=== PATIENT | male | born 1945 | race Caucasian/White ===

== ENCOUNTER 2022-04-03 09:27 | Outpatient (CLI) | payer MEDICARE, OTHER, SELFPAY ==
--- OUTSIDE RECORDS SUMMARY | 2022-03-20 09:51 | XMS_ITS | Continuity of Care Document ---
:1945 Author Care Team Providers Name Role Phone MD Shaan Hills Attending Physician MD Shaan Hills Primary Care Physician Allergies, Adverse Reactions, Alerts Allergen Type Severity Reaction Last Updated Verified Status No Known Drug Allergy Unknown May Yes Active Allergy 2020 Social History Smoking Status Status Start Date End Date Date of Observat ion Never smoked tobacco May 252020 (finding) 4:04pm Observation Status Observation Response Date of Response Former smoker June 06, 2021 9:07am Has 2 children June 06, 2021 9:07am Additional Data Assigned Sex Male Problems Active Problems Medical Problem Onset Date Status Rectal 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 Hx of type 2 diabetes mellitus Active Hx of mixed hyperlipidemia Active History of Durham-Schlatter disease Acti ve History of hypertension Active 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 Rosacea Active Medications Medication Status Dose Units Route Directions Qty Days Start End Ins tructions Date Date Acetaminophen Active 325-6 MG PO Every 4 100 NO MORE THAN (Tylenol) 325 50 Hours as 400 0 MG/DAY Mg TAB needed Lidocaine-Judy Active 1 BALDO TOP As Needed 22 April locaine 2020 9:25am Ondansetron Active 8 MG PO Every 8 30 Hcl Hours as needed Polyethylene Active 17 GM PO Daily 238 Glycol 3350 (Miralax) 17 Gm POW Prochlorperaz Active 10 MG PO Every 4-6 30 P RN ine Maleate Hours as Nause a/vomiti needed ng Capecitabine Discontin 1000 MG PO Twice A Day Feb scarlett PO BID DAYS 1-14, Q21D X8 CYCLES. Dispense appropriate combo ued ry of pills to ob tain ordered dose. 21 day supply. 2021 1:45pm Capecitabine Discontin 500 MG PO Twice A Day 100 Septemb N ovemb take 1300 mg every 12 hours on days of radiation. (2 ued er er tablets of 500 plus 2 tablets of 150) 2020 5:52pm 11:12a m Capecitabine Discontin 1300 MG PO Twice A Day 100 25 Septemb N ovemb take 1300 mg every 12 hours on days of radiation. (2 ued er er tablets of 500 plus 2 tablets of 150) 2020 5:52pm 11:55a m Immunizations Immunization Event Date Not Given Dose Mail Sorter And Delivery Lot Vac cine Reason Number Number Informatio n Statement (VIS) Deta il COVID-19 Pfizer November 25, 2020 COVID-19 Pfizer December 16, 2020 COVID-19 Pfizer May 132020 Herpes Zoster October 082013 Influenza May 252019 Prevnar Adult July 142012 Pneumovax Adult July 292014 Tetanus/Diptheri September 24 a 2003 Tdap July 14 (adolescent/adul 2012 t) Relevant Diagnostic Tests and/or Laboratory Data Laboratory Results Test Date/Time Result Interpretation Reference Result Comment Performing Range Site White Blood February 5.43 5.00-10.00 [facility] Count 2021 [facility] 2:38pm [place] [address] Red Blood February 3.62 4.32-5.72 [facility] Count 2021 [facility] 2:38pm [place] [address] Hemoglobin February 11.9 13.5-17.5 [facility] 2021 [facility] 2:38pm [place] [address] Hematocrit February 36.4 38.8-50.0 [facility] [address] [facility] [address] 2:38pm [place] [address] Mean October 81-95 [facility] Corpuscular [address] Volume 2:38pm [place] [address] Mean October 27-34 [facility] Corpuscular [address] Hemoglobin 2:38pm [facility] [place] [address] Mean October 32-36 [facility] Corpuscular [address] Hemoglobin 2:38pm [facility] [address] Concent Platelet Count October 164 150-450 [facility] 2021 [facility] 2:38pm [place] [address] RDW October 12.7 11.5-15.3 [facility] Coefficient of 2021 [facility] Variation 2:38pm [place] [address] Neutrophils February 71.0 50.0-70.0 [facility] (%) (Auto) 2021 [facility] 2:38pm [facility] [address] Lymphocytes February 11.2 25.0-45.0 [facility] (%) (Auto) 2021 [facility] 2:38pm [place] [address] Monocytes (%) October 9.4 0.00-11.0 [facility] Lab (Auto) 2021 [facility] 2:38pm [place] [address] Eosinophils February 7.6 0.0-7.0 [facility] (%) (Auto) 2021 [facility] 2:38pm [facility] [address] Basophils (%) October 0.6 0.0-3.0 [facility] (Auto) 2021 [facility] 2:38pm [facility] [address] Immature February 0.2 [facility] Granulocyte % 2021 [facility] (Auto) 2:38pm [place] [address] RDW June 15.5 11.5-15.3 [facility] Coefficient of 2020 [facility] Variation 11:45am [facility] [address] Neutrophils # February 3.86 1.70-7.00 [facility] (Auto) 2021 [facility] 2:38pm [place] [address] Lymphocytes # February 0.61 0.90-2.90 [facility] (Auto) 2021 [facility] 2:38pm [place] [address] Monocytes # February 0.51 0.30-0.90 [facility] Lab (Auto) 2021 [facility] 2:38pm [place] [address] Eosinophils # February 0.41 0.00-0.50 [facility] (Auto) 2021 [facility] 2:38pm [facility] [address] Basophils # February 0.03 0.00-0.20 [facility] (Auto) 2021 [facility] 2:38pm [facility] [address] Immature February 0.01 [facility] Granulocyte # 2021 [facility] (Auto) 2:38pm [facility] [address] Glycated February 5.1 0-5.6 [facility] Hemoglobin 2021 [facility] 2:38pm [facility] [address] Folate October 12.3 >=5.9 INTERPRETIVE [facility] 2021 INFORMATION: [address] 2:38pm [facility] [address] SerumReference Interval: Less than or equal to 3.9 ng/mL = Deficient 4.0 ng/mL - 5.8 ng/mL = Indeterminate Greater than or equal to 5.9 ng/mL = NormalPerformed By: DUSTY Matos[address] [place] [id number] Director: Navya Larios MD Random Glucose October 86 60-115 [facility] 2021 [facility] 2:38pm [facility] [address] Blood Urea October 16 7-30 [facility] Nitrogen 2021 [facility] 2:38pm [facility] [address] Creatinine February 0.7 0.5-1.5 [facility] 2021 [facility] 2:38pm [facility] [address] Estimated February 87.238 [facility] Creatinine 2021 [facility] Clearance 2:38pm [facility] [address] Sodium Level October 138 135-149 [facility] 2021 [facility] 2:38pm [facility] [address] Potassium February 4.1 3.6-5.1 [facility] Level 2021 [facility] 2:38pm [facility] [address] Chloride Level October 105 96-114 [facility] 2021 [facility] 2:38pm [facility] [address] Carbon Dioxide October 28 20-32 [facility] Level 2021 [facility] 2:38pm [facility] [address] Calcium Level October 8.6 8.4-10.6 [facility] 2021 [facility] 2:38pm [place] [address] Total Protein October 6.6 6.0-8.3 The use of [facility] 2021 Eltrombopag, a 1999 [facility] 2:38pm [place] [address] stimulant used to treat thrombocytopenia and aplastic anemia, interferes with this measurement of total protein. A 5% bias has been observed. Albumin October 4.0 3.3-5.0 [facility] 2021 [facility] 2:38pm [place] [address] Total February 0.5 0.1-1.5 [facility] Bilirubin 2021 [facility] 2:38pm [place] [address] Aspartate October 45 12-35 [facility] Amino Transf [address] [facility] [place] (AST/SGOT) 2:38pm [place] [address] Alanine October 24 4-50 [facility] Aminotransfera 2021 [facility] se (ALT/SGPT) 2:38pm [place] [address] Alkaline October 68 40-150 [facility] Phosphatase [address] 2:38pm [place] [address] Carcinoembryon February 09, 1.6 INTERPRETIVE [facility] ic Antigen 2021 INFORMATION: [address] 9:59am Carcinoembryonic [facility] [address] AntigenThe Franco CEA electrochemilumi nescent immunoassay was used.Results obtained with different test methods or kits cannot beused interchangeably. Measurement of CEA has been shown to beclinically relevant in the management of patients withcolorectal, breast, lung, prostatic, pancreatic, and ovariancarcinoma s. Smokers may have slightly elevated levels of CEA.The CEA assay value, regardless of level, should not beinterpreted as evidence for the presence or absence of malignantdisease and is not recommended for use as a screening procedureto detect the presence of cancer in the general population.Perfo rmed By: [facility] [id number] [place], [place] [address]Ieniadvmok Director: Navya Larios MD Total Protein October 6.0 6.3-8.2 [facility] L ABORATORIES (ANIVAL) 2021 [address] [facility] [address] 2:38pm [facility] [address] Albumin (ANIVAL) October 3.47 3.75-5.01 [facility] [address] 2:38pm [facility] [address] Thydi-3-Lxilep October 0.34 0.19-0.46 [facility] ins [address] 2:38pm [facility] [address] Xgecl-8-Mxnwtz October 0.79 0.48-1.05 [facility] ins [address] 2:38pm [facility] [address] Beta Globulins October 0.68 0.48-1.10 [facility] [address] 2:38pm [facility] [address] Gamma February 0.72 0.62-1.51 [facility] Globulins [address] 2:38pm [facility] [address] Immunofixation October ANIVAL [facility] Interpretation [address] 2:38pm [facility] [address] Immunoglobulin October [phone] REFERENCE [facility] G 2021 INTERVAL: [address] (Nephelometry) 2:38pm Immunoglobulin [facility] [address] GAccess complete set of age- and/or gender-specific referenceinterva ls for this test in the [facility] Test Directory([employer]). Immunoglobulin October 220 68-408 [facility] A [address] INTERVAL: [address] (Nephelometry) 2:38pm Immunoglobulin [place] [address] AAccess complete set of age- and/or gender-specific referenceinterva ls for this test in the [facility] Test Directory([employer]). Immunoglobulin October 43 35-263 [facility] M [address] INTERVAL: [address] (Nephelometry) 2:38pm Immunoglobulin [facility] [address] MAccess complete set of age- and/or gender-specific referenceinterva ls for this test in the [facility]([employer]). Free [place] November 1284 3.30-19.40 INTERPRETIVE [facility] Light Chains, 2021 INFORMATION: [address] Quant 2:38pm [place] Qnt Free [facility] [address] Light ChainsUndetected antigen excess is a rare event but cannot beexcluded. Free light chain results should always be interpretedin conjunction with other clinical and laboratory findings. Free Lambda October 19.85 5.71-26.30 INTERPRETIVE [facility] [employer] Light Chains, 2021 INFORMATION: [address] Quant 2:38pm Lambda Qnt Free [facility] [address] Light ChainsUndetected antigen excess is a rare event but cannot beexcluded. Free light chain results should always be interpretedin conjunction with other clinical and laboratory findings. Free [place] and October 1.00 0.26-1.65 [facility] [employer] Lambda Light [address] Chains 2:38pm [facility] [address] ANIVAL & Serum October See Normal SPEP [facility] L ABORATORIES PEP 2021 Note pattern. ANIVAL [address] Interpretation 2:38pm gel shows a [facility] [address] normal pattern; nomonoclonal proteins seen. Monoclonal October See Access [facility] Protein and 2021 Note Enhanced Report [address] FLC (EER) 2:38pm using the link [facility] [address] below:-Direct access: [email or web address] rformed By: [email or web address] [place], [place] [address]Laboratory Director: Nvaya Larios MD Vitamin B12 October 243-044 [facility] Level 2021 [facility] 2:38pm [facility] [address] Insurance Providers Guarantor Kael Vanegas Address [address] [facility] [address] Contact Info. Home Phone: Payer Policy Id Coverage Id Subscriber's Subscriber Effective Expi ration Name Id Date Date Medicare [id number] Kael Vanegas [id number] [facility] [id number] Kael Vanegas [id number] [facility] C Encounters Encounter Location(s) Arrival/Admit Date Discharge/Depart Date Provider(s) Registered [place] March 09, 2022 Lui Talbert [facility] 7:22am Plan of Treatment Future Tests Future scheduled test information is unavailable Pending Tests Pending diagnostic test information is unavailable Future Visits Future appointment information is unavailable Referrals to Other Providers Referral information is unavailable Future Procedures Future procedure information is unavailable Future Medications Future medication information is unavailable Patient Instructions Dexamethasone (By injection) Palonosetron (By injection)
--- NOTE | 2022-04-03 10:00 | CRLHL7_ITS ---
For Patients: As a result of the Century Cures Act, medical imaging exams and procedure reports are released immediately into your electronic medical record. You may view this report before your referring provider. If you have questions, please contact your health care provider. Indication: RECTAL CANCER F/U Technique: Postcontrast CT chest, abdomen and pelvis. 98 cc Isovue 370 intravenous contrast. Please note that all CT scans at this facility use dose modulation, iterative reconstruction, and/or weight-based dosing when appropriate to reduce radiation dose to as low as reasonably achievable. Comparison: [facility] 10/03/2021 Findings: In the chest, there are no suspicious pulmonary nodules. No infiltrate, edema, effusion or pneumothorax. Mild chronic scarring at the lateral aspect of the left lower lobe. No mediastinal, hilar or axillary adenopathy. Stable appearance of the thyroid. Right Port-A-Cath. No fracture. In the abdomen/pelvis, stable appearance of the liver with innumerable cysts. No suspicious intrahepatic lesions. Spleen normal. Normal adrenal glands. Normal pancreas. Normal gallbladder. Stable simple cyst within the lateral aspect of the right kidney. Less than 5 millimeter cyst upper pole left kidney. No hydronephrosis. Vascular calcifications. No adenopathy. No bowel obstruction. Postop changes to the distal colon. Posttherapy changes to perirectal fat. Interval development of a small low-density collection adjacent to the right and this, series 2, image 256, measuring 2.4 cm prostate is mildly prominent. No bladder stone. Chronic changes to the iliac wings. Stable benign density within the right side of the sacrum. Impression: Postsurgical and post radiation therapy changes to the rectum/perirectal fat with a small collection of fluid in the right perirenal space. No enlarged lymph nodes. Stable appearance of the liver with innumerable hepatic cysts/hamartomas. No suspicious pulmonary nodule. Please note that all CT scans at this facility use dose modulation, iterative reconstruction, and/or weight-based dosing when appropriate to reduce radiation dose to as low as reasonably achievable. Dictated by Augustine Cote MD @ 04/03/2022 1:31:15 PM (Electronically Signed)
== END 2022-04-03 09:28 | disposition home or self-care (01) ==
PROVIDERS: PCP Family Medicine; Visit Provider Internal Medicine Hematology & Oncology
DX: C20 Malignant neoplasm of rectum (principal); K76.89 Other specified diseases of liver; Q44.6 Cystic disease of liver
CPT/HCPCS: 36415; 36591; 71260; 74177; 82565; J1642; Q9967

== ENCOUNTER 2022-04-10 07:52 | Outpatient (RCR) | payer MEDICARE, OTHER, SELFPAY ==
[2022-04-03 10:40] LABS: Estimated Glomerular Filt Rate 90.58
[2022-04-03 10:41] LABS: Creatinine* 0.8 mg/dL (0.5-1.5)
[2022-04-03] MEDS: SODIUM CHLORIDE 0.9 % (FLUSH) 10 ML SYRINGE IVF (15:25)
[2022-04-03] MEDS: HEPARIN 500 UNIT/5 ML SYRINGE IVF (15:25)
== END 2022-04-23 23:59 | disposition home or self-care (01) ==
LOC: CCIC 07:52
PROVIDERS: PCP Family Medicine; Visit Provider Internal Medicine Medical Oncology
DX: C20 Malignant neoplasm of rectum (principal)
CPT/HCPCS: 36415; 36591; 82378; 82565; 86300; 99212; 99215; J1642

== ENCOUNTER 2022-07-03 10:46 | Outpatient (CLI) | payer MEDICARE, OTHER, SELFPAY ==
[2022-07-03 21:58] LABS: Albumin* 4.1 g/dL (3.3-5.0)
[2022-07-03 21:59] LABS: Chloride* 105 mmol/L (96-114); Potassium* 4.1 mmol/L (3.6-5.1); Sodium* 137 mmol/L (135-149)
[2022-07-03 22:00] LABS: Total Protein Urine 9 mg/dL
[2022-07-03 22:01] LABS: Bilirubin Total* 0.9 mg/dL (0.1-1.5); Carbon Dioxide* 28 mmol/L (20-32); Cholesterol* 178 mg/dL (90-199); Creatinine* 0.9 mg/dL (0.5-1.5); Estimated Glomerular Filt Rate 87 ml/min
[2022-07-03 22:02] LABS: Alanine Aminotransferase* 17 U/L (4-50); Alkaline Phosphatase* 63 U/L (40-150); Aspartate Amino Transferase* 39 U/L (12-35); Blood Urea Nitrogen* 19 mg/dL (7-30); Calcium* 9.2 mg/dL (8.4-10.6); Glucose* 100 mg/dL (60-115); Total Protein* 6.6 g/dL (6.0-8.3); Triglycerides* 62 mg/dL (40-149)
[2022-07-03 22:03] LABS: HDL Cholesterol* 56 mg/dL (>=40); LDL Cholesterol Calculated 110 mg/dL (<100)
[2022-07-03 22:07] LABS: Creatinine Urine 38.7 mg/dL; Microalbumin Creatinine Ratio 20 mg/g (0-30); Microalbumin Urine < 1 mg/dL
[2022-07-03 22:44] LABS: Hepatitis C Virus Antibody* Negative (Negative)
[2022-07-03 22:45] LABS: Vitamin B12* 185 pg/mL (243-894)
== END 2022-07-03 10:47 | disposition home or self-care (01) ==
PROVIDERS: PCP Family Medicine; Visit Provider Family Medicine
DX: Z00.00 Encounter for general adult medical examination without abnormal findings (principal); E11.9 Type 2 diabetes mellitus without complications; Z13.6 Encounter for screening for cardiovascular disorders; I10 Essential (primary) hypertension; E66.9 Obesity, unspecified; Z11.59 Encounter for screening for other viral diseases; Z86.39 Personal history of other endocrine, nutritional and metabolic disease; E78.5 Hyperlipidemia, unspecified
CPT/HCPCS: 80053; 80061; 82043; 82378; 82570; 82607; 84156; 86803

== ENCOUNTER 2022-11-06 09:45 | Outpatient (RCR) | payer MEDICARE, OTHER, SELFPAY ==
[2022-05-12] MEDS: HEPARIN 500 UNIT/5 ML SYRINGE IVF (10:38)
[2022-05-12] MEDS: SODIUM CHLORIDE 0.9 % (FLUSH) 10 ML SYRINGE IVF (10:38)
--- NOTE | 2022-05-12 11:47 | ONC.NURNOTE ---
Patient in for port flush and let nursing know that plan is for colonoscopy with Dr. Leach on June 28.
[2022-06-24 15:28] LABS: Carcinoembryonic Antigen 1.8 ng/mL
[2022-08-04 10:37] LABS: Basophils Percent Auto 0.8 % (0.0-3.0); Eosinophils Percent Auto 3.3 % (0.0-7.0); Hematocrit 41.4 % (37.0-53.0); Hemoglobin* 13.8 gm/dL (13.5-17.5); Lymphocytes Percent Auto 15.3 % (20-44); Mean Corpuscular HGB Conc 33 gm/dL (32-36); Mean Corpuscular Hemoglobin 32 pg (26-34); Mean Corpuscular Volume 95 fL (80-100); Neutrophils Percent Auto 72.6 % (42.0-72.0); Platelet Count* 169 K/uL (140-440); RDW Coefficient of Variation % 13.3 % (11.5-15.5); Red Blood Count 4.38 m/uL (4.30-5.90)
[2022-08-04 10:51] LABS: Slide Review Reflex No
[2022-08-04 11:12] LABS: Albumin* 4.1 g/dL (3.3-5.0); Chloride* 103 mmol/L (96-114); Sodium* 138 mmol/L (135-149)
[2022-08-04 11:13] LABS: Potassium* 4.1 mmol/L (3.6-5.1)
[2022-08-04 11:15] LABS: Aspartate Amino Transferase* 37 U/L (12-35); Bilirubin Total* 1.2 mg/dL (0.1-1.5); Blood Urea Nitrogen* 22 mg/dL (7-30); Carbon Dioxide* 27 mmol/L (20-32); Creatinine* 0.9 mg/dL (0.5-1.5); Estimated Glomerular Filt Rate 87 ml/min; Total Protein* 6.7 g/dL (6.0-8.3)
[2022-08-04] MEDS: HEPARIN 500 UNIT/5 ML SYRINGE IVF (11:15)
[2022-08-04 11:16] LABS: Alanine Aminotransferase* 21 U/L (4-50); Alkaline Phosphatase* 58 U/L (40-150); Calcium* 8.8 mg/dL (8.4-10.6); Glucose* 114 mg/dL (60-115)
[2022-08-04] MEDS: SODIUM CHLORIDE 0.9 % (FLUSH) 10 ML SYRINGE IVF (11:16)
[2022-08-05 23:23] LABS: Carcinoembryonic Antigen 1.8 ng/mL
[2022-10-09 15:27] LABS: Basophils Absolute Auto 0.04 K/uL (0.00-0.30); Basophils Percent Auto 0.7 % (0.0-3.0); Eosinophils Absolute Auto 0.29 K/uL (0.00-0.50); Eosinophils Percent Auto 4.7 % (0.0-7.0); Hematocrit 38.6 % (37.0-53.0); Hemoglobin* 12.9 gm/dL (13.5-17.5); Immature Granulocytes Abs Auto 0.03 K/uL (0.00-0.30); Immature Granulocytes Pct Auto 0.5 %; Lymphocytes Percent Auto 15.8 % (20-44); Mean Corpuscular HGB Conc 33 gm/dL (32-36); Mean Corpuscular Hemoglobin 32 pg (26-34); Mean Corpuscular Volume 97 fL (80-100); Monocytes Percent Auto 8.8 % (0.0-11.0); Neutrophils Absolute Auto 4.25 K/uL (1.7-7.0); Neutrophils Percent Auto 69.5 % (42.0-72.0); Platelet Count* 199 K/uL (140-440); RDW Coefficient of Variation % 13.4 % (11.5-15.5); Red Blood Count 3.99 m/uL (4.30-5.90); White Blood Count* 6.12 K/uL (4.50-11.00)
[2022-10-09 15:29] LABS: Slide Review Reflex No
[2022-10-09] MEDS: HEPARIN 500 UNIT/5 ML SYRINGE IVF (15:30)
[2022-10-09] MEDS: SODIUM CHLORIDE 0.9 % (FLUSH) 10 ML SYRINGE IVF (15:30)
[2022-10-09 16:02] LABS: Albumin* 3.9 g/dL (3.3-5.0); Chloride* 106 mmol/L (96-114); Sodium* 137 mmol/L (135-149)
[2022-10-09 16:05] LABS: Alkaline Phosphatase* 82 U/L (40-150); Aspartate Amino Transferase* 34 U/L (12-35); Bilirubin Total* 0.8 mg/dL (0.1-1.5); Blood Urea Nitrogen* 23 mg/dL (7-30); Carbon Dioxide* 27 mmol/L (20-32); Creatinine* 0.9 mg/dL (0.5-1.5); Estimated Glomerular Filt Rate 87 ml/min; Total Protein* 6.7 g/dL (6.0-8.3)
[2022-10-09 16:06] LABS: Alanine Aminotransferase* 19 U/L (4-50); Calcium* 8.6 mg/dL (8.4-10.6); Glucose* 82 mg/dL (60-115)
[2022-10-09 16:34] LABS: Potassium* 4.1 mmol/L (3.6-5.1)
[2022-10-11 15:32] LABS: Carcinoembryonic Antigen 1.6 ng/mL
[2022-11-06] MEDS: HEPARIN 500 UNIT/5 ML SYRINGE IVF (10:47)
[2022-11-06] MEDS: SODIUM CHLORIDE 0.9 % (FLUSH) 10 ML SYRINGE IVF (10:48)
== END 2022-11-08 23:59 | disposition home or self-care (01) ==
LOC: CCIC 09:45
PROVIDERS: Internal Medicine Medical Oncology; PCP Family Medicine; Referring Provider Family Medicine; Visit Provider Physician Assistant
DX: C20 Malignant neoplasm of rectum (principal)
CPT/HCPCS: 36415; 36591; 80053; 82378; 85025; 99211; 99212; 99214; J1642

== ENCOUNTER 2023-10-11 08:45 | Outpatient (RCR) | payer MEDICARE, OTHER, SELFPAY ==
[2023-04-17 10:41] LABS: Basophils Absolute Auto 0.04 K/uL (0.00-0.30); Basophils Percent Auto 0.8 % (0.0-3.0); Eosinophils Absolute Auto 0.11 K/uL (0.00-0.50); Eosinophils Percent Auto 2.3 % (0.0-7.0); Hematocrit 42.5 % (37.0-53.0); Hemoglobin* 13.9 gm/dL (13.5-17.5); Immature Granulocytes Abs Auto 0.01 K/uL (0.00-0.30); Immature Granulocytes Pct Auto 0.2 %; Lymphocytes Percent Auto 13.6 % (20-44); Mean Corpuscular HGB Conc 33 gm/dL (32-36); Mean Corpuscular Hemoglobin 31 pg (26-34); Mean Corpuscular Volume 94 fL (80-100); Monocytes Percent Auto 7.1 % (0.0-11.0); Platelet Count* 177 K/uL (140-440); RDW Coefficient of Variation % 13.4 % (11.5-15.5); Red Blood Count 4.54 m/uL (4.30-5.90); White Blood Count* 4.77 K/uL (4.50-11.00)
[2023-04-17 10:42] LABS: Slide Review Reflex No
[2023-04-17 10:56] LABS: Chloride* 103 mmol/L (96-114); Sodium* 137 mmol/L (135-149)
[2023-04-17 10:59] LABS: Alanine Aminotransferase* 22 U/L (4-50); Alkaline Phosphatase* 71 U/L (40-150); Aspartate Amino Transferase* 41 U/L (12-35); Bilirubin Total* 1.3 mg/dL (0.1-1.5); Blood Urea Nitrogen* 21 mg/dL (7-30); Calcium* 8.8 mg/dL (8.4-10.6); Carbon Dioxide* 27 mmol/L (20-32); Creatinine* 0.8 mg/dL (0.5-1.5); Estimated Glomerular Filt Rate 90 ml/min; Glucose* 105 mg/dL (60-115); Total Protein* 6.9 g/dL (6.0-8.3)
[2023-04-18 15:06] LABS: Carcinoembryonic Antigen 1.8 ng/mL
[2023-07-22 10:51] LABS: Carcinoembryonic Antigen 1.6 ng/mL
[2023-10-11 09:09] LABS: Basophils Absolute Auto 0.03 K/uL (0.00-0.30); Basophils Percent Auto 0.5 % (0.0-3.0); Eosinophils Absolute Auto 0.17 K/uL (0.00-0.50); Eosinophils Percent Auto 2.6 % (0.0-7.0); Hematocrit 44.8 % (37.0-53.0); Hemoglobin* 14.6 gm/dL (13.5-17.5); Lymphocytes Percent Auto 12.5 % (20-44); Mean Corpuscular HGB Conc 33 gm/dL (32-36); Mean Corpuscular Hemoglobin 31 pg (26-34); Mean Corpuscular Volume 94 fL (80-100); Monocytes Percent Auto 8.3 % (0.0-11.0); Neutrophils Percent Auto 76.1 % (42.0-72.0); Platelet Count* 188 K/uL (140-440); Red Blood Count 4.75 m/uL (4.30-5.90); White Blood Count* 6.64 K/uL (4.50-11.00)
[2023-10-11 09:14] LABS: Slide Review Reflex No
[2023-10-11 09:22] LABS: Albumin* 4.5 g/dL (3.3-5.0); Chloride* 104 mmol/L (96-114); Sodium* 139 mmol/L (135-149)
[2023-10-11 09:23] LABS: Potassium* 4.3 mmol/L (3.6-5.1)
[2023-10-11 09:25] LABS: Alkaline Phosphatase* 70 U/L (40-150); Anion Gap 9 mEq/L (7-15); Aspartate Amino Transferase* 38 U/L (12-35); Bilirubin Total* 1.3 mg/dL (0.1-1.5); Carbon Dioxide* 26 mmol/L (20-32); Creatinine* 0.8 mg/dL (0.5-1.5); Est. Creatinine Clearance* 53.17; Estimated Glomerular Filt Rate 89 ml/min; Total Protein* 7.5 g/dL (6.0-8.3)
[2023-10-11 09:26] LABS: Alanine Aminotransferase* 19 U/L (4-50); Blood Urea Nitrogen* 21 mg/dL (7-30); Calcium* 9.3 mg/dL (8.4-10.6); Glucose* 103 mg/dL (60-115)
[2023-10-13 17:15] LABS: Carcinoembryonic Antigen 1.8 ng/mL
== END 2023-10-14 23:59 | disposition home or self-care (01) ==
LOC: CCIC 08:45
PROVIDERS: PCP Family Medicine; Referring Provider Family Medicine; Visit Provider Physician Assistant
DX: C20 Malignant neoplasm of rectum (principal)
CPT/HCPCS: 36415; 71260; 74177; 80053; 82378; 82565; 85025; 99212; 99214; Q9967

== ENCOUNTER 2024-04-07 09:07 | Outpatient (CLI) | payer MEDICARE, OTHER, SELFPAY ==
--- NOTE | 2024-04-07 10:00 | CRLHL7_ITS ---
For Patients: As a result of the Century Cures Act, medical imaging exams and procedure reports are released immediately into your electronic medical record. You may view this report before your referring provider. If you have questions, please contact your health care provider. INDICATION: Rectal cancer, surveillance TECHNIQUE: CT chest, abdomen and pelvis acquired with 89 mL Isovue 370 IV contrast. COMPARISON: 10/11/2023, 04/17/2023 chest abdomen pelvis CTs FINDINGS: CHEST: Cardiovascular structures: Heart size is normal. Thoracic aorta and main pulmonary artery are normal in caliber. Mediastinum and carlota: No mass or adenopathy. Lungs and pleura: Lungs and pleural spaces are clear. No suspicious nodules, infiltrates, or effusions. Chest wall and axilla: No mass or adenopathy. Bones: No suspicious bone lesions. Unremarkable for age. ABDOMEN AND PELVIS: Liver: Innumerable cysts, unchanged. Gallbladder and bile ducts: Unremarkable. Pancreas: Unremarkable. Spleen: Unremarkable. Adrenal glands: Unremarkable. Kidneys: Unremarkable. GI tract: Surgical anastomoses in the distal rectum and distal ileum. Vascular structures: Atherosclerosis. Lymph nodes: Unremarkable. Miscellaneous: New right lower quadrant ventral hernia containing small bowel. Right inguinal hernia containing fat and minimal small-bowel is slightly larger. A right peroneal fat containing hernia is unchanged. No free air or free fluid. Pelvic Organs: Unremarkable. Bones: Postop changes in the right proximal femur. IMPRESSION: 1. No evidence for metastatic disease. 2. New right lower quadrant ventral hernia containing unobstructed small bowel. Please note that all CT scans at this facility use dose modulation, iterative reconstruction, and/or weight-based dosing when appropriate to reduce radiation dose to as low as reasonably achievable. Dictated by Chava Pulido MD @ 04/08/2024 12:12:09 PM (Electronically Signed)
== END 2024-04-07 09:08 | disposition home or self-care (01) ==
LOC: CT 09:09
PROVIDERS: PCP Family Medicine; Visit Provider Physician Assistant
DX: C20 Malignant neoplasm of rectum (principal); K43.9 Ventral hernia without obstruction or gangrene
CPT/HCPCS: 71260; 74177; Q9967

== ENCOUNTER 2024-04-14 14:00 | Outpatient (RCR) | payer MEDICARE, OTHER, SELFPAY ==
[2024-04-07 09:28] LABS: Basophils Absolute Auto 0.05 K/uL (0.00-0.30); Basophils Percent Auto 0.8 % (0.0-3.0); Eosinophils Absolute Auto 0.22 K/uL (0.00-0.50); Eosinophils Percent Auto 3.4 % (0.0-7.0); Hematocrit 47.2 % (37.0-53.0); Hemoglobin* 15.3 gm/dL (13.5-17.5); Immature Granulocytes Abs Auto 0.01 K/uL (0.00-0.30); Immature Granulocytes Pct Auto 0.2 %; Lymphocytes Percent Auto 14.7 % (20-44); Mean Corpuscular HGB Conc 32 gm/dL (32-36); Mean Corpuscular Hemoglobin 31 pg (26-34); Mean Corpuscular Volume 96 fL (80-100); Monocytes Percent Auto 7.8 % (0.0-11.0); Neutrophils Percent Auto 73.1 % (42.0-72.0); Platelet Count* 181 K/uL (140-440); RDW Coefficient of Variation % 13.7 % (11.5-15.5); Red Blood Count 4.92 m/uL (4.30-5.90); White Blood Count* 6.39 K/uL (4.50-11.00)
[2024-04-07 09:32] LABS: Slide Review Reflex No
[2024-04-07 09:52] LABS: Albumin* 4.6 g/dL (3.3-5.0); Chloride* 103 mmol/L (96-114); Potassium* 4.6 mmol/L (3.6-5.1); Sodium* 138 mmol/L (135-149)
[2024-04-07 09:55] LABS: Alanine Aminotransferase* 22 U/L (4-50); Alkaline Phosphatase* 69 U/L (40-150); Anion Gap 4 mEq/L (7-15); Aspartate Amino Transferase* 50 U/L (12-35); Bilirubin Total* 1.6 mg/dL (0.1-1.5); Blood Urea Nitrogen* 14 mg/dL (7-30); Carbon Dioxide* 31 mmol/L (20-32); Creatinine* 0.9 mg/dL (0.5-1.5); Estimated Glomerular Filt Rate 86 ml/min; Glucose* 118 mg/dL (60-115); Total Protein* 7.5 g/dL (6.0-8.3)
[2024-04-07 09:56] LABS: Calcium* 9.4 mg/dL (8.4-10.6)
[2024-04-08 15:06] LABS: Carcinoembryonic Antigen 2.2 ng/mL
== END 2024-04-15 23:59 | disposition home or self-care (01) ==
LOC: CCIC 14:00
PROVIDERS: Physician Assistant; PCP Family Medicine; Referring Provider Family Medicine; Visit Provider Internal Medicine Hematology & Oncology
DX: C20 Malignant neoplasm of rectum (principal); R15.2 Fecal urgency
CPT/HCPCS: 36415; 80053; 82378; 85025; 99213; 99214; G0463

== ENCOUNTER 2024-06-25 09:51 | Outpatient (CLI) | payer MEDICARE, OTHER, SELFPAY | END 2024-06-25 09:52 | disposition home or self-care (01) | LOC: RAD 09:52 | PROVIDERS: PCP Family Medicine; Visit Provider Physician Assistant Medical | DX: I48.92 Unspecified atrial flutter (principal) | CPT/HCPCS: 93306 ==

== ENCOUNTER 2024-07-03 14:05 | Emergency (ER) | payer MEDICARE, OTHER, SELFPAY ==
[2024-07-03 14:13] VITALS: BP 175/129; PULSE 106; RESP 18; TEMP 36.6; O2SAT 100; BMI 29.6
[2024-07-03] MEDS: METOPROLOL TARTRATE 25 MG TABLET PO (14:51)
--- NOTE | 2024-07-03 14:54 | ED_ITS ---
HPI - General Adult General Chief complaint: Hypertension Stated complaint: hypertension Time Seen by Provider: 07/03/24 14:19 History of Present Illness HPI narrative: This 79-year-old male was at a cardiology visit for a preop evaluation for a revision of hernia repair scheduled in the next couple weeks. He states that he is not having any symptoms but as he arrived at the clinic appointment it was noted that he was in atrial flutter with rapid ventricular response. His heart rate was up around 120 to 140 beats per minute. He did not know that he was in in atrial flutter. He is not on any anticoagulants or rate controlling medications. He was sent here from the cardiology clinic for purposes a rate control and ongoing management. The patient arrives here with irregular heartbeat but actually has normal rate hovering around 90-100 beats per minute. Related Data Home Medications ?Medication ?Instructions ?Recorded ?Confirmed acetaminophen 325 mg tablet 650 mg PO Q6H PRN 09/05/22 07/03/24 Previous Rx's ?Medication ?Instructions ?Recorded apixaban 5 mg (74 tabs) tablets in See Rx Instructions PO .COMPLEX 07/03/24 a dose pack (Tetragenetics DVT-PE Treat #74 ea 30D Start) metoprolol tartrate 25 mg tablet 25 mg PO BID #60 tabs 07/03/24 Allergies Allergy/AdvReac Type Severity Reaction Status Date / Time No Known Drug Allergies Allergy Verified 07/03/24 14:12 Review of Systems Status of ROS: Reports: 10 or more systems reviewed and unremarkable except as noted in History and below Narrative: Constitutional: No fevers, no weight gain or loss. Eyes: No discharge. No vision changes. HENT: No congestion, no sore throat, no ear pain. Cardiovascular: No chest pain, no palpitations. Respiratory: No shortness of breath, no wheezes, no cough. Gastrointestinal: No abdominal pain, no vomiting, no diarrhea. Genitourinary: No dysuria, no hematuria. Musculoskeletal: Normal range of motion. Skin: No rashes, no pruritis. Neurological: No dizziness, weakness, sensory change, speech change. Endo/Heme/Allergies: No bruising or bleeding. No polydipsia. Pysch: no suicidality, no anxiety, no insomnia. All other systems reviewed and are negative. [facility] Medical History (Updated 07/03/24 @ 16:04 by Alex Padron MD) History of mixed hyperlipidemia ?Z86.39 - Personal history of other endocrine, nutritional and metabolic disease (ICD-10) History of hypertension ?Z86.79 - Personal history of other diseases of the circulatory system (ICD- 10) Mixed hyperlipidemia ?E78.2 - Mixed hyperlipidemia (ICD-10) DM2 (diabetes mellitus, type 2) ?E11.9 - Type 2 diabetes mellitus without complications (ICD-10) Rosacea ?L71.9 - Rosacea, unspecified (ICD-10) Malignant neoplasm of rectum (2020) ?C20 - Malignant neoplasm of rectum (ICD-10) History of Hancock-Schlatter disease ?Z87.39 - Personal history of other diseases of the musculoskeletal system and connective tissue (ICD-10) Surgical History (Updated 06/11/24 @ 13:02 by Brad Alcazar PA-C) History of surgery ?Z98.890 - Other specified postprocedural states (ICD-10) History of closure of ileostomy ?Z98.890 - Other specified postprocedural states (ICD-10) History of ileostomy ?Z98.890 - Other specified postprocedural states (ICD-10) History of partial colectomy ?Z90.49 - Acquired absence of other specified parts of digestive tract (ICD- 10) Family History Mother Breast cancer Daughter Crohn's disease Parkinson disease Father Lung cancer Social History Narrative: 2 children Former smoker Smoking Status: Former smoker Do you use any of these nicotine containing products: None Second hand tobacco smoke exposure: No How often do you have a drink containing alcohol: 2-3 times a week How many standard drinks containing alcohol do you have on a typical day: 1 or 2 How often do you have six or more drinks on one occasion: Never AUDIT-C Alcohol total score: 3 Non-prescribed substance use: denies use Exam Narrative: Exam Narrative: Constitutional: Well-developed, well-nourished, no acute distress. HEENT: Normocephalic, atraumatic. Neck: Normal range of motion. Nontender. Supple. Heart: Irregular. No murmurs. Normal rate. Intact distal pulses. Lungs: Clear to auscultation. No chest discomfort. No wheezes, rhonchi, or rales. Abdomen: Normal bowel sounds. Nontender. No rebound tenderness. Genitalia: Deferred. Back: No midline tenderness. Normal range of motion. Extremities: Normal range of motion. No injury. Skin: Intact. No rash. Warm. No erythema or pallor. Neurologic: No altered sensation. No weakness. Alert and oriented. Psychiatric: No suicidality. No anxiety or depression. No insomnia. Nursing notes and vitals signs are reviewed. Const: Vital Signs, click to edit/add: Vital Signs - 24 hr 07/03/24 14:13 Temperature 97.8 F Pulse Rate [Pulse Oximeter] 106 H Respiratory Rate 18 Blood Pressure [Le ft Upper Arm] 175/129 H Pulse Oximetry 100 Oxygen Delivery Me thod Room Air Course Vital Signs Vital signs: Initial Vital Signs Temperature 97.8 F 07/03/24 14:13 Temperature Source Temporal Artery Scan 07/03/24 14:13 Pulse Rate 106 H 07/03/24 14:13 Respiratory Rate 18 07/03/24 14:13 Blood Pressure 175/129 H 07/03/24 14:13 Blood Pressure Mean 144 H 07/03/24 14:13 Blood Pressure Position Sitting 07/03/24 14:13 Pulse Oximetry 100 07/03/24 14:13 Oxygen Delivery Method Room Air 07/03/24 14:13 Vital Signs Temperature 97.8 F 07/03/24 14:13 Pulse Rate 106 H 07/03/24 14:13 Respiratory Rate 18 07/03/24 14:13 Blood Pressure 175/129 H 07/03/24 14:13 Pulse Oximetry 100 07/03/24 14:13 Oxygen Delivery Method Room Air 07/03/24 14:13 Temperature 97.8 F 07/03/24 14:13 Pulse Rate 106 H 07/03/24 14:13 Respiratory Rate 18 07/03/24 14:13 Blood Pressure 175/129 H 07/03/24 14:13 Pulse Oximetry 100 07/03/24 14:13 Oxygen Delivery Method Room Air 07/03/24 14:13 Medications Administered Medications: Discontinued Medications Generic Name Dose Route Start Last Admin Trade Name Freq PRN Reason Stop Dose Admin Metoprolol Tartrate 25 mg 07/03/24 14:44 07/03/24 14:51 Metoprolol Tartrate 25 Mg Tablet PO 07/03/24 14:45 25 mg ONCE ONE Administration Medical Decision Making MDM Narrative Medical decision making narrative: This patient comes in with atrial flutter and some episodes of increased heart rate. These findings have been present for long enough time where he is not a candidate for cardioversion. The patient does not describe any symptoms related to this. He states that he did not know that he was in this kind of rhythm. He is not taking any antihypertensives or rate control medications. Additionally he is not on any anti coagulants. The patient arrives here with a heart rate around 100 beats per minute an a rhythm that is probably atrial flutter but EKG states that it was an indeterminate rhythm. At times it appears that he does go into a normal sinus rhythm but this is rather short lived. Patient had labs drawn and these all returned with normal findings. He also received an oral dose of metoprolol which brought his heart rate down to around 65 beats per mi nute. He is okay to be discharged home and I did provide prescriptions for Eliquis and metoprolol. He is instructed to follow-up with his primary physician for ongoing management. Lab Data Labs: Lab Results 07/03/24 07/03/24 Range/Units 14:45 15:00 WBC 7.16 (4.50-11.00) K/uL RBC 4.66 (4.30-5.90) m/uL Hgb 14.5 (13.5-17.5) gm/dL Hct 44.1 (37.0-53.0) % MCV 95 (80-100) fL MCH 31 (26-34) pg MCHC 33 (32-36) gm/dL RDW Coeff of Rnye 13.6 (11.5-15.5) % Plt Count 169 (140-440) K/uL Neut % (Auto) 68.6 (42.0-72.0) % Lymph % (Auto) 17.7 L (20-44) % Antelope % (Auto) 10.1 (0.0-11.0) % Eos % (Auto) 2.2 (0.0-7.0) % Baso % (Auto) 0.6 (0.0-3.0) % Neut # (Auto) 4.91 (1.7-7.0) K/uL Lymph # (Auto) 1.30 (0.90-2.90) K/uL Antelope # (Auto) 0.70 (0.00-0.90) K/UL Eos # (Auto) 0.16 (0.00-0.50) K/uL Baso # (Auto) 0.04 (0.00-0.30) K/uL Abs Immat Gran (auto) 0.06 (0.00-0.30) K/uL Imm/Tot Granulo (auto) 0.8 % Sodium 138 (135-149) mmol/L Potassium 4.0 (3.6-5.1) mmol/L Chloride 104 (96-114) mmol/L Carbon Dioxide 26 (20-32) mmol/L Anion Gap 8 (7-15) mEq/L BUN 19 (7-30) mg/dL Creatinine 0.9 (0.5-1.5) mg/dL Estimated Creat Clear 59.82 Estimated GFR 86 ml/min Glucose 80 (60-115) mg/dL Calcium 9.4 (8.4-10.6) mg/dL Magnesium 2.2 (1.5-2.6) mg/dL POC Troponin I 0.02 (0.01-0.04) ng/ml ECG Data Attestation: I personally reviewed and interpreted this ECG as follows: Interpretation: Undetermined rhythm. Rate is 111 beats per minute. There are no specific ST or T-wave abnormalities. Repeat EKG shows atrial flutter with a rate at 69 beats per minute. There are no specific ST or T-wave abnormalities. Discharge Plan Discharge Clinical Impression: Atrial flutter Patient Disposition: Home, Self-Care Condition: Improved Additional Instructions: Take Eliquis and metoprolol as prescribed. Follow up with primary physician for ongoing management. Return if worsening. Prescriptions: New metoprolol tartrate 25 mg tablet 25 mg PO BID Qty: 60 2RF Eliquis DVT-PE Treat 30D Start 5 mg (74 tabs) tablets,dose pack See Rx Instructions PO .COMPLEX Qty: 74 0RF Rx Instructions: orally per package directions No Action acetaminophen 325 mg tablet 650 mg PO Q6H PRN Rx Instructions: NO MORE THAN 4000 MG/DAY Follow Up/Referrals: Rosaline Bond MD [Primary Care Provider] - Stand Alone Forms: [employer] Info Instructions
[2024-07-03 15:09] LABS: Basophils Absolute Auto 0.04 K/uL (0.00-0.30); Basophils Percent Auto 0.6 % (0.0-3.0); Eosinophils Absolute Auto 0.16 K/uL (0.00-0.50); Eosinophils Percent Auto 2.2 % (0.0-7.0); Hematocrit 44.1 % (37.0-53.0); Hemoglobin* 14.5 gm/dL (13.5-17.5); Immature Granulocytes Abs Auto 0.06 K/uL (0.00-0.30); Immature Granulocytes Pct Auto 0.8 %; Lymphocytes Percent Auto 17.7 % (20-44); Mean Corpuscular HGB Conc 33 gm/dL (32-36); Mean Corpuscular Hemoglobin 31 pg (26-34); Mean Corpuscular Volume 95 fL (80-100); Monocytes Percent Auto 10.1 % (0.0-11.0); Neutrophils Absolute Auto 4.91 K/uL (1.7-7.0); Neutrophils Percent Auto 68.6 % (42.0-72.0); Platelet Count* 169 K/uL (140-440); RDW Coefficient of Variation % 13.6 % (11.5-15.5); Red Blood Count 4.66 m/uL (4.30-5.90); White Blood Count* 7.16 K/uL (4.50-11.00)
[2024-07-03 15:14] LABS: Troponin, Point-of-Care* 0.02 ng/ml (0.01-0.04)
[2024-07-03 15:14] LABS: Slide Review Reflex No
--- OUTSIDE RECORDS SUMMARY | 2024-07-03 15:20 | XMS_ITS | Referral Summary ---
Author Organization [place] Address Formerly [facility] [place] [address] Care Team Providers Care Cryptologist Name Role Phone Beverly Lopez PA-C Unavailable [phone] [facility], [facility] Primary Care Provider Allergies No known active allergies Medications Medication Sig Dispensed Refills Start Date End Date Status Ibuprofen (ADVIL PO) Take 400 mg by mouth every 6 hours as needed Active acetaminophen (TYLENOL) 325 MG tablet Take 650 mg by mouth every 6 hours as needed for mild pain Active aspirin (ASA) 325 MG EC tabletIndications:V TE Prophylaxis Take 1 tablet (325 mg) by mouth daily 30 tablet 08/25/2022 Active oxyCODONE (ROXICODONE) 5 MG tabletIndications:H ip fracture, right, closed, initial encounter (H) Take 0.5-1 tablets (2.5-5 mg) by mouth every 4 hours as needed for moderate to severe pain 25 tablet 08/24/2022 Active senna-docusate (SENOKOT-S/PERICOLA CE) 8.6-50 MG tabletIndications:H ip fracture, right, closed, initial encounter (H) Take 1 tablet by mouth 2 times daily as needed for constipation 20 tablet 08/24/2022 Active Active Problems Problem Noted Date Diagnosed Date Fall, initial encounter 08/22/2022 Closed displaced intertrocha nteric fracture of right femur, initial encounter 08/22/2022 Hip fracture, right, closed, initial encounter 1 10/22/2021 Benign nodular prostatic hyp erplasia with lower urinary tract symptoms 10/28/2021 Malignant neoplasm of rectum 02/23/2021 Overview: Colonoscopy 02/2021 Rectal adenocarcinoma, repeat colonoscopy determined after the work up Colonoscopy 02/2021 Rectal adenocarcinoma, repeat colonoscopy determined after the work up Hyperlipidemia 07/14/2013 Social History Tobacco Use Types Packs/Day Years Used Date Smoking Tobacco: Never Smokeless Tobacco: Never Alcohol Use Standard Drinks/Week Comments Yes 0 (1 standard drink = 0.6 oz pur e alcohol) occasionally Adolescent Education Answer Date Record ed Getting School Help Needed Not on file 07/08 Sex and Gender Information Value Date Recorded Sex Assigned at Not on file Gender Identity Not on file Sexual Orientation Not on file Last Filed Vital Signs Vital Sign Reading Time Taken Comments Blood Pressure 115/65 08/25/2022 8:14 AM REFRIGERATOR CRATER Pulse 80 08/25/2022 8:14 AM REFRIGERATOR CRATER Temperature 37.1 ??C (98.8 ??F) 08/25/2022 8:14 AM CS T Respiratory Rate 16 08/25/2022 8:14 AM REFRIGERATOR CRATER Oxygen Saturation 100% 08/25/2022 8:14 AM REFRIGERATOR CRATER Inhaled Oxygen Concentration - - Weight 89.4 kg (197 lb) 08/23/2022 8:41 AM REFRIGERATOR CRATER p t stated Height 180.3 cm (5' 11) 08/23/2022 8:41 AM REFRIGERATOR CRATER pt stated Body Mass Index 27.48 08/23/2022 8:41 AM REFRIGERATOR CRATER Plan of Treatment Not on file Medical Devices Implanted Type Area Forge Operator Device Identifier Shelf Expiration Date Model / Serial / Lot Imp Nail Syn Can Fem Prox Tfna [id number] 125d 04.037.112s - [id number] Implanted:Qty: 1 on 08/23/2022 by Sonu Gomez MD at [facility] Metallic Hardware/Anc hor Right: Hip SYNTHES-STRATEC 01/22/2032 04.037.11 2S / / [id number] Imp Scr Syn Tfna Fenestrated Lag 95mm 04.038.195s - [id number] Implanted:Qty: 1 on 08/23/2022 by Sonu Gomez MD at [facility] Metallic Hardware/Anc hor Right: Hip SYNTHES-STRATEC 04/23/2032 04.038.19 5S / / [id number] Screw Bn 40mm 5mm Lck X25 Strl Im Nl 04.045.040s - [id number] Implanted:Qty: 1 on 08/23/2022 by Sonu Gomez MD at [facility] Metallic Hardware/Anc hor Right: Hip SYNTHES-STRATEC 12/23/2031 04.045.04 0S / / [id number] Advance Directives For more information, please contact: [phone] * Full Code (Latest Code Status on File) Date Activated Date Inactivated Comments 08/25/2022 7:31 AM Question Answer Comments Code status determined by: Discussion with patie nt/ legal decision maker * Full Code Date Activated Date Inactivated Comments 08/23/2022 12:36 PM 08/25/2022 7:31 AM All basic and advanced life-sustaining interventions are performed as appropriate Question Answer Comments Code status determined by: Unable to dis cuss and no AD/POLST on file; continue PREVIOUSLY ORDERED code status * Full Code Date Activated Date Inactivated Comments 08/22/2022 9:54 PM 08/23/2022 12:36 PM All basic and advanced life-sustaining interventions are performed as appropriate Question Answer Comments Code status determined by: Discussion with patie nt/ legal decision maker Care Teams Cryptologist Relationship Specialty Start Date End Date Clinic, [address] [id number] PCP - General 12/1/22 Beverly Lopez PA-C [address] [place] [address] [place] [address] Physician Oracle Solutions Architect Urology 10/24/21
--- OUTSIDE RECORDS SUMMARY | 2024-07-03 15:20 | XMS_ITS | Encounter Summary ---
Author Organization [place] Address [address] [place] [address] Care Team Providers Care Wastewater Design Engineer Name Role Phone No Ref-Primary, Physician Primary Care Provider Beverly Lopez PA-C Unavailable [phone]- [phone] Beverly Lopez PA-C Unavailable [phone]- [phone] [facility] Primary Care Provider Encounter Details Date Type Department Care Team (Late st Contact Info) Description 10/22/2021 Documentation Only INTERFACED REPORT Unknown, Provider Social History Tobacco Use Types Packs/Day Years Used Date Smoking Tobacco: Never Alcohol Use Standard Drinks/Week Comments Yes 0 (1 standard drink = 0.6 oz pur e alcohol) occasionally Sex and Gender Information Value Date Recorded Sex Assigned at Not on file Gender Identity Not on file Sexual Orientation Not on file COVID-19 Exposure Response Date Recorded In the last month, have you been in contact with someone who was confirmed or suspected to have Coronavirus / COVID-19? Unable to assess 10/24/2021 8:35 AM HOT MOLDER documented as of this encounter Plan of Treatment Not on file documented as of this encounter Visit Diagnoses Not on filedocumented in this encounter Care Teams Wastewater Design Engineer Relationship Specialty Start Date End Date No Ref-Primary, Physician PCP - General 10/22/21 08/23/[address] [address] PCP - General 08/24/22 Beverly Lopez PA-C [address] [place] [address] [place] [address] Physician Field Talent Qualification Specialist Urology 10/24/21 Beverly Lopez PA-C [address] [place] [address] [place] [address] Assigned Surgical Provider 11/06/2104/27/23 documented as of this encounter
--- OUTSIDE RECORDS SUMMARY | 2024-07-03 15:20 | XMS_ITS | Clinical Summary ---
Author Organization [place] Address Counts include 234 beds at the [facility] [place] [address] Care Team Providers Care Repairer Cylinder Heads Name Role Phone Beverly Lopez PA-C Unavailable [phone]- [phone] [facility], [facility] Primary Care Provider Allergies No known active [...] Comments Blood Pressure 115/65 08/25/2022 8:14 AM ISOTOPE TECHNICIAN Pulse 80 08/25/2022 8:14 AM ISOTOPE TECHNICIAN Temperature 37.1 ??C (98.8 ??F) 08/25/2022 8:14 AM CS T Respiratory Rate 16 08/25/2022 8:14 AM ISOTOPE TECHNICIAN Oxygen Saturation 100% 08/25/2022 8:14 AM ISOTOPE TECHNICIAN Inhaled Oxygen Concentration - - Weight 89.4 kg (197 lb) 08/23/2022 8:41 AM ISOTOPE TECHNICIAN p t stated Height 180.3 cm (5' 11) 08/23/2022 8:41 AM ISOTOPE TECHNICIAN pt stated Body Mass Index 27.48 08/23/2022 8:41 AM ISOTOPE TECHNICIAN Plan of Treatment Health Maintenance Due Date Last Done Comments ADVANCE CARE PLANNING 1945 ANNUAL REVIEW OF HM ORDERS 1943 LIPID 1943 FALL RISK ASSESSMENT 2008 MEDICARE ANNUAL WELLNESS VISIT 2008 ZOSTER IMMUNIZATION (2 of 3) 12/03/2013 10/08/2013 RSV VACCINE (1 - 1-dose 75+ series) 2018 DTAP/TDAP/TD IMMUNIZATION (2 - Td or Tdap) 07/14/2023 07/14/2013, 09/24/2003 PHQ-2 (once per calendar year) 2023 COVID-19 Vaccine ( season) 2024 07/18/2022, 05/13/2021, 12/16/2020, Additional history exists INFLUENZA VACCINE (#1) 2024 2, 07/12/2021, 06/17/2020, Additional history exists Pneumococcal Vaccine: 65+ Years Completed 07/29/2015, 07/14/2013 COLONOSCOPY Discontinued 06/28/2022 [address]ER SCREENING Discontinued CT COLONOGRAPHY Discontinued FIT Discontinued FLEX SIG Discontinued HPV IMMUNIZATION Aged Out No longer e ligible based on patient's age to complete this topic MENINGITIS IMMUNIZATION Aged Out No l onger eligible based on patient's age to complete this topic RSV MONOCLONAL ANTIBODY Aged Out No l onger eligible based on patient's age to complete this topic sDNA (Cologuard) Discontinued Medical Devices Implanted Type Area Internal Grinder Device Identifier Shelf Expiration Date Model / Serial / Lot Imp Nail Syn Can Fem Prox Tfna [id number] 125d 04.037.112s - [id number] Implanted:Qty: 1 on 08/23/2022 by Sonu Gomez MD at [facility] Metallic Hardware/Anc hor Right: Hip SYNTHES-STRATEC 01/22/2032 04.037.11 2S / / [id number] Imp Scr Syn Tfna Fenestrated Lag 95mm 04.038.195s - [id number] Implanted:Qty: 1 on 08/23/2022 by Sonu Gomez MD at [facility] Metallic Hardware/Anc hor Right: Hip SYNTHES-STRATEC 04/23/2032 04.038.19 5S / / [id number] Screw Bn 40mm 5mm Lck X25 Strl Im Nl 04.045.040s - [id number] Implanted:Qty: 1 on 08/23/2022 by Sonu Gomez MD at [facility] Metallic Hardware/Anc hor Right: Hip SYNTHES-STRATEC 12/23/2031 04.045.04 0S / / [id number] Advance Directives For more information, please contact: [phone] * Full Code (Latest Code Status on File) Date Activated Date Inactivated Comments 08/25/2022 7:31 AM Question Answer Comments Code status determined by: Discussion with arley nt/ legal decision maker * Full Code [...] Comments Code status determined by: Discussion with arley nt/ legal decision maker Care Teams Repairer Cylinder Heads Relationship Specialty Start Date End Date Clinic, [address] [address] PCP - General 08/24/22 Beverly Lopez PA-C [address] [place] [address] [place] [address] Physician Health And Wellness Coach Urology 10/24/21
[2024-07-03 15:27] LABS: Chloride* 104 mmol/L (96-114)
[2024-07-03 15:28] LABS: Sodium* 138 mmol/L (135-149)
[2024-07-03 15:30] LABS: Anion Gap 8 mEq/L (7-15); Carbon Dioxide* 26 mmol/L (20-32); Creatinine* 0.9 mg/dL (0.5-1.5); Est. Creatinine Clearance* 59.82; Estimated Glomerular Filt Rate 86 ml/min
[2024-07-03 15:31] LABS: Blood Urea Nitrogen* 19 mg/dL (7-30); Calcium* 9.4 mg/dL (8.4-10.6); Glucose* 80 mg/dL (60-115); Magnesium* 2.2 mg/dL (1.5-2.6)
[2024-07-03] MEDS: APIXABAN 5 MG TABLET 10 MG PO (16:12)
== END 2024-07-03 16:30 | disposition home or self-care (01) ==
PROVIDERS: Emergency Provider Emergency Medicine Emergency Medical Services; PCP Family Medicine
DX: I48.92 Unspecified atrial flutter (principal)
CPT/HCPCS: 36415; 80048; 83735; 84484; 85025; 93005; 99284; A9270

== ENCOUNTER 2024-10-16 09:18 | Outpatient (CLI) | payer MEDICARE, OTHER, SELFPAY ==
--- NOTE | 2024-10-16 10:00 | CRLHL7_ITS ---
For Patients: As a result of the Century Cures Act, medical imaging exams and procedure reports are released immediately into your electronic medical record. You may view this report before your referring provider. If you have questions, please contact your health care provider. INDICATION: Rectal cancer TECHNIQUE: Volumetric helical scanning of the chest, abdomen and pelvis was performed with 116 cc of Isovue 370 contrast material IV. Coronal and sagittal reconstructions were obtained. COMPARISON: Chest/abdomen/pelvis CT of 10/11/2023 FINDINGS: CHEST: No pulmonary nodule is evident. No infiltrate, airway abnormality or pleural effusion is demonstrated. No axillary, mediastinal or hilar adenopathy is apparent. The heart is normal in size. Calcified coronary arterial plaque is again demonstrated. ABDOMEN/PELVIS: Anorectal postop changes are again demonstrated. No recurrent mass is apparent. No lymphadenopathy is evident pelvis, retroperitoneum or mesentery. No peritoneal implant free intraperitoneal fluid is demonstrated. A lower right anterior abdominal wall hernia has developed in the interval. The wall defect is measured at 3 x 2 cm. Small bowel loops of prolapsed through this defect. This includes a small bowel staple line. A small direct right inguinal hernia is also noted. Innumerable liver cysts are again demonstrated. The liver is otherwise unremarkable. The bile ducts are within normal limits. The spleen, adrenal glands and pancreas are negative. The kidneys are unremarkable. A small hiatal hernia is noted. The prostate is negative. No lytic or blastic bone lesion is identified. IMPRESSION: 1. No evidence of recurrent/metastatic disease. 2. Innumerable liver cysts. 3. New lower right anterior abdominal wall hernia containing small bowel loops. Please note that all CT scans at this facility use dose modulation, iterative reconstruction, and/or weight-based dosing when appropriate to reduce radiation dose to as low as reasonably achievable. Dictated by Filiberto Baez MD @ 10/16/2024 4:35:13 PM (Electronically Signed)
== END 2024-10-16 09:19 | disposition home or self-care (01) ==
LOC: CT 09:18
PROVIDERS: PCP Family Medicine; Visit Provider Internal Medicine Hematology & Oncology
DX: C20 Malignant neoplasm of rectum (principal); K76.89 Other specified diseases of liver; K46.9 Unspecified abdominal hernia without obstruction or gangrene
CPT/HCPCS: 71260; 74177; Q9967

== ENCOUNTER 2024-10-27 10:40 | Emergency (ER) | payer MEDICARE, OTHER, SELFPAY ==
--- OUTSIDE RECORDS SUMMARY | 2024-10-27 10:42 | XMS_ITS | Clinical Summary ---
Author Organization [facility] Address [place], [place] [address] Care Team Providers Care Overlock Sewing Machine Operator Name Role Phone Rosaline Bond MD Primary Care Provider [phone] Allergies Active Allergy Reactions Criticality Noted Date Comments Latex Rash Unknown 09/29/2024 Medications amLODIPine (Norvasc) 5 mg tabletIndication s:Atrial fibrillation, unspecified type (HC) Take 1 Tablet (5 mg) by mouth once daily. 31 Tablet 3 4 Active apixaban (ELIQUIS) 5 mg tabletIndication s:Atrial fibrillation, unspecified type (HC) Take 1 Tablet (5 mg) by mouth two times daily. 180 Tablet 3 4 Active metoprolol tartrate (LOPRESSOR) 25 mg tabletIndication s:Atrial fibrillation, unspecified type (HC) Take 0.5 Tablets (12.5 mg) by mouth two times daily. 90 Tablet 2 5 Active metoprolol tartrate (LOPRESSOR) 25 mg tabletIndication s:Atrial fibrillation, unspecified type (HC) Take 1 Tablet (25 mg) by mouth two times daily. 180 Tablet 4 09/29/19 25 Discontinu ed(*Patien t states no longer taking) Active Problems Problem Noted Date Diagnosed Date Rectal cancer 02/23/2021 Overview (06/30/2022): Colonoscopy 02/2021 Rectal adenocarcinoma Colonoscopy 06/2022 polyp, repeat in 3 years Type 2 diabetes mellitus without complications 0 06/19/2019 Body mass index (BMI) 37.0-37.9, adult 8 Hyperlipidemia, unspecified 07/14/2013 Encounters Date Type Department Care Team Description 10/08/2024 Telephone [facility] [address] [place] [address] Benton Dobbs MD Questions 10/07/2024 Telephone [facility] [address] [place] [address] Benton Dobbs MD Questions 10/06/2024 Telephone [facility] [address] [place] [address] Benton Dobbs MD Arrhythmia 10/02/2024 Telephone [facility] [address] [place] [address] Benton Dobbs MD Health Maintenance Update 09/29/2024 2:30 PM ASSOCIATE PROFESSOR OF MUSIC Office Visit [facility] [address] [place] [phone] Benton Dobbs MD Consult (Ref: Dr. lara DX: Afib/09/01 Holter /pt states having no symptoms recently or today) 09/29/2024 Travel 09/03/2024 Refill [facility] [address] [place] [address] Filiberto Lara MD Refill Request 09/01/2024 Telephone [facility] [address] [place] [address] Filiberto Lara MD Results (Zio) 09/01/2024 Orders Only [facility] [address] [place] [address] Nkechi Nguyen 1 scan: (1-Ord) Zio Report 08/14/2024 11:00 AM ASSOCIATE PROFESSOR OF MUSIC Office Visit [facility] [address] [place] [address] Filiberto Lara MD from Last 3 Months Immunizations Name Administration Dates Next Due Pneumococcal conj 13-Valent (Prevnar 13) 013 Tdap 07/14/2013 Family History Medical History Relation Name Comments Cancer-breast Mother Relation Name Status Comments Father Mother Social History Tobacco Use Types Packs/Day Years Used Date Smoking Tobacco: Never Smokeless Tobacco: Never Tobacco Cessation:Counseling Given: Yes Alcohol Use Standard Drinks/Week Comments Yes 7 (1 standard drink = 0.6 oz pur e alcohol) Social Connections Answer Date Recorded Frequency of Communication with Friends and Fami ly Not on file 09/24/2021 Financial Resource Strain Answer Date R ecorded Difficulty of Paying Living Expenses Not on file 09/24/2021 Difficulty of Paying Living Expenses Not on file 09/24/2021 Sex and Gender Information Value Date Recorded Sex Assigned at Not on file Legal Sex Male 6:46 AM ASSOCIATE PROFESSOR OF MUSIC Gender Identity Not on file Sexual Orientation Not on file Obstetrics History Last Filed Vital Signs Vital Sign Reading Time Taken Comments Blood Pressure 138/78 09/29/2024 2:30 PM ASSOCIATE PROFESSOR OF MUSIC Pulse 108 09/29/2024 2:30 PM ASSOCIATE PROFESSOR OF MUSIC Temperature - - Respiratory Rate - - Oxygen Saturation 100% 09/29/2024 2:30 PM ASSOCIATE PROFESSOR OF MUSIC Inhaled Oxygen Concentration - - Weight 97.5 kg (215 lb) 09/29/2024 2:30 PM ASSOCIATE PROFESSOR OF MUSIC Height 180.3 cm (5' 11) 09/29/2024 2:30 PM ASSOCIATE PROFESSOR OF MUSIC Body Mass Index 29.99 09/29/2024 2:30 PM ASSOCIATE PROFESSOR OF MUSIC Plan of Treatment Upcoming Encounters Date Type Department Care Team (Late st Contact Info) Description 02/02/2025 3:00 PM CDT Appointment [facility] [address] [place] [address] 02/02/2025 4:00 PM CDT Office Visit [facility] [address] [facility] [address] [place] [address] Benton Dobbs MD [address] [facility] [address] [place], [place] [id number] Health Maintenance Due Date Last Done Comments Depression screening for age 12+ 1955 Zoster (shingles) series for age 50+ (1 of 2) 1993 Medicare Wellness for age 65+ 2008 Pneumococcal series for age 50+ (2 of 2 - PPSV23) 09/08/2013 07/14/2013 RSV vaccine for adults or (1 - 1-dose 75+ series) 2018 Tetanus booster 07/14/2023 07/14/2013 COVID-19 vaccine series ( season) 2024 07/18/2022, 05/13/2021, 12/16/2020, Additional history exists Influenza for age 65+ 05/25/2024 BMI (ht and wt on same day) for age 18+ 09/29/2025 09/29/2024 Tdap Completed 07/14/2013 Procedures Procedure Name Priority Date/Time Associated Diagnosis Comments EKG 12 LEAD Routine 09/29/2024 2:20 PM ASSOCIATE PROFESSOR OF MUSIC Atrial fibrillation, unspecified type (HC) EXTENDED HOLTER Routine 09/01/2024 Atypical atrial flutter (HC) from Last 3 Months Results * EKG 12 LEAD (09/29/2024 2:20 PM ASSOCIATE PROFESSOR OF MUSIC) Interpretation Atrial fibrillation with rapid ventricular response Poor R-wave progression ; consider anterior infarct, lead placement, or normal variant Abnormal ECG No previous ECGs available Ventricular Rate 108 BPM Atrial Rate BPM P-R Interval ms QRS Duration 84 ms QT 320 ms QTc 428 ms P [place] degrees R [place] 59 degrees T [place] 44 degrees 09/29/2024 2:20 PM ASSOCIATE PROFESSOR OF MUSIC 10/05/2024 5:32 PM ASSOCIATE PROFESSOR OF MUSIC Benton Dobbs MD EKG ORD Fin al Result * EXTENDED HOLTER (09/01/2024) Filiberto Lara MD CARDIAC SERVICES ORD Edite d Result - Final from Last 3 Months Insurance [facility] MEDICARE PB ONLY MEDICARE PART B HB ONLY Care Teams Overlock Sewing Machine Operator Relationship Specialty Start Date End Date Rosaline Bond MD [id number] [place] [id number] PCP - General 06/25/24
--- OUTSIDE RECORDS SUMMARY | 2024-10-27 10:42 | XMS_ITS | Encounter Summary ---
Author Organization [place] Address [address] [place] [address] Care Team Providers Care Anodiser Name Role Phone No Ref-Primary, Physician Primary Care Provider Beverly Lopez PA-C Unavailable Beverly Lopez PA-C Unavailable [facility] Primary Care Provider Encounter Details Date Type [...] at Not on file Legal Sex Male 3:11 AM PRESS LOADER Gender Identity Not on file Sexual Orientation Not on file COVID-19 Exposure Response Date Recorded In the last month, have you been in contact with someone who was confirmed or suspected to have Coronavirus / COVID-19? Unable to assess 10/24/2021 8:35 AM PRESS LOADER documented as of this encounter Plan of Treatment Not on file documented as of this encounter Visit Diagnoses Not on filedocumented in this encounter Care Teams Anodiser Relationship Specialty Start Date End Date No Ref-Primary, Physician PCP - General 10/22/21 08/23/[address] [address] PCP - General 08/24/22 Beverly Lopez PA-C [address] [address] Physician Captain Fishing Vessel Urology 10/24/21 Beverly Lopez PA-C [address] [place] [address] Assigned Surgical Provider 11/06/2104/27/23 documented as of this encounter
--- OUTSIDE RECORDS SUMMARY | 2024-10-27 10:42 | XMS_ITS | Referral Summary ---
Author Organization [facility] Address [address] [place] [address] Care Team Providers Care Career Law Clerk Name Role Phone Beverly Lopez PA-C Unavailable [facility], [facility] Primary Care Provider Allergies No known active allergies Medications Ibuprofen (ADVIL PO) Take 400 mg by mouth every 6 hours as needed Active acetaminophen (TYLENOL) 325 MG tablet Take 650 mg by mouth every 6 hours as needed for mild pain Active aspirin (ASA) 325 MG EC tabletIndicatio ns:VTE Prophylaxis Take 1 tablet (325 mg) by mouth daily 30 tablet 2 Active oxyCODONE (ROXICODONE) 5 MG tabletIndicatio ns:Hip fracture, right, closed, initial encounter (H) Take 0.5-1 tablets (2.5-5 mg) by mouth every 4 hours as needed for moderate to severe pain 25 tablet 2 Active senna-docusate (SENOKOT-S/CASSIDY COLACE) 8.6-50 MG tabletIndicatio ns:Hip fracture, right, closed, initial encounter (H) Take 1 tablet by mouth 2 times daily as needed for constipation 20 tablet 2 Active Active Problems Problem Noted Date Diagnosed Date Fall, initial encounter 08/22/2022 Closed displaced intertrocha nteric fracture of right femur, initial encounter 08/22/2022 Hip fracture, right, closed, initial encounter 1 10/22/2021 Benign nodular prostatic hyp erplasia with lower urinary tract symptoms 10/28/2021 Malignant neoplasm of rectum 02/23/2021 Overview (10/28/2021): Colonoscopy 02/2021 Rectal adenocarcinoma, repeat colonoscopy determined [...] on file Legal Sex Male 3:11 AM ASSISTED LIVING ADMINISTRATOR Gender Identity Not on file Sexual Orientation Not on file Last Filed Vital Signs Vital Sign Reading Time Taken Comments Blood Pressure 115/65 08/25/2022 8:14 AM ASSISTED LIVING ADMINISTRATOR Pulse 80 08/25/2022 8:14 AM ASSISTED LIVING ADMINISTRATOR Temperature 37.1 C (98.8 F) 08/25/2022 8:14 AM ASSISTED LIVING ADMINISTRATOR Respiratory Rate 16 08/25/2022 8:14 AM ASSISTED LIVING ADMINISTRATOR Oxygen Saturation 100% 08/25/2022 8:14 AM ASSISTED LIVING ADMINISTRATOR Inhaled Oxygen Concentration - - Weight 89.4 kg (197 lb) 08/23/2022 8:41 AM ASSISTED LIVING ADMINISTRATOR p t stated Height 180.3 cm (5' 11) 08/23/2022 8:41 AM ASSISTED LIVING ADMINISTRATOR pt stated Body Mass Index 27.48 08/23/2022 8:41 AM ASSISTED LIVING ADMINISTRATOR Plan of Treatment Not on file Medical Devices Implanted Type Area Ncqa Specialist Device Identifier Shelf Expiration Date Model / Serial / Lot Imp Nail Syn Can Fem Prox Tfna [id number] 04.037.112s - [id number] Implanted:Qty: 1 on 08/23/2022 by Sonu Gomez MD at [facility] Metallic Hardware/Anc hor Right: Hip SYNTHES-STRATEC 01/22/2032 04.037.11 2S / / [id number] Imp Scr Syn Tfna Fenestrated Lag 95mm 04.038.195s - [id number] Implanted:Qty: 1 on 08/23/2022 by Sonu Gomez MD at [facility] Metallic Hardware/Anc hor Right: Hip SY[employer]ES-STRATEC 04/23/2032 04.038.19 5S / / [id number] Screw Bn 40mm 5mm Lck X25 Strl Im Nl 04.045.040s - [id number] Implanted:Qty: 1 on 08/23/2022 by Sonu Gomez MD at [facility] Metallic Hardware/Anc hor Right: Hip SYNTHES-STRATEC 12/23/2031 04.045.04 0S / / [id number] Insurance MEDICARE [facility] [employer] Advance Directives For more information, please contact: [phone] * Full Code (Latest Code Status on [...] patie nt/ legal decision maker Care Teams Career Law Clerk Relationship Specialty Start Date End Date [facility], [address] [address] PCP - General 08/24/22 Beverly Lopez PA-C [address] [facility] [address] [place] [address] Physician Action Finisher Urology 10/24/21
--- OUTSIDE RECORDS SUMMARY | 2024-10-27 10:42 | XMS_ITS | Clinical Summary ---
Author Organization [facility] Address [address] [place] [address] Care Team Providers Care Rn Observation Name Role Phone Beverly Lopez PA-C Unavailable [facility] Primary Care Provider Allergies No known active [...] on file Legal Sex Male 3:11 AM ENTEROSTOMAL NURSE Gender Identity Not on file Sexual Orientation Not on file Last Filed Vital Signs Vital Sign Reading Time Taken Comments Blood Pressure 115/65 08/25/2022 8:14 AM ENTEROSTOMAL NURSE Pulse 80 08/25/2022 8:14 AM ENTEROSTOMAL NURSE Temperature 37.1 C (98.8 F) 08/25/2022 8:14 AM ENTEROSTOMAL NURSE Respiratory Rate 16 08/25/2022 8:14 AM ENTEROSTOMAL NURSE Oxygen Saturation 100% 08/25/2022 8:14 AM ENTEROSTOMAL NURSE Inhaled Oxygen Concentration - - Weight 89.4 kg (197 lb) 08/23/2022 8:41 AM ENTEROSTOMAL NURSE p t stated Height 180.3 cm (5' 11) 08/23/2022 8:41 AM ENTEROSTOMAL NURSE pt stated Body Mass Index 27.48 08/23/2022 8:41 AM ENTEROSTOMAL NURSE Plan of Treatment Health Maintenance Due Date Last Done Comments ADVANCE CARE PLANNING 1943 ANNUAL REVIEW OF HM ORDERS 1945 LIPID 1943 FALL RISK ASSESSMENT 2008 MEDICARE ANNUAL WELLNESS VISIT 2008 ZOSTER IMMUNIZATION (2 of 3) 12/03/2013 10/08/2013 RSV VACCINE (1 - 1-dose 75+ series) 2018 DTAP/TDAP/TD IMMUNIZATION (2 - Td or Tdap) 07/14/2023 07/14/2013, 09/24/2003 COVID-19 Vaccine ( season) 2024 07/18/2022, 05/13/2021, 12/16/2020, Additional history exists INFLUENZA VACCINE (#1) 2024 2, 07/12/2021, 06/17/2020, Additional history exists PHQ-2 (once per calendar year) 2024 Pneumococcal Vaccine: 50+ Years Completed 07/29/2015, 07/14/2013 COLONOSCOPY Discontinued 06/28/2022 [...] (Cologuard) Discontinued Medical Devices Implanted Type Area Optical Effects Layout Person Device Identifier Shelf Expiration Date Model / Serial / Lot Imp Nail Syn Can Fem Prox Tfna [id number] 04.037.112s - [id number] Implanted:Qty: 1 on 08/23/2022 by Sonu Gomez MD at Metallic Hardware/Anc hor Right: Hip SY[employer]ES-[employer]ATEC 01/22/2032 04.037.11 2S / / [id number] Imp Scr Syn Tfna Fenestrated Lag 95mm 04.038.195s - [id number] Implanted:Qty: 1 on 08/23/2022 by Sonu Gomez MD at Metallic Hardware/Anc hor Right: Hip SY[employer]ES-[employer]ATEC 04/23/2032 04.038.19 5S / / [id number] Screw Bn 40mm 5mm Lck X25 Strl Im Nl 04.045.040s - [id number] Implanted:Qty: 1 on 08/23/2022 by Sonu Gomez MD at Metallic Hardware/Anc hor Right: Hip SY[employer]ES-[employer]ATEC 12/23/2031 04.045.04 0S / / [id number] Insurance MEDICARE [facility] [employer] Advance Directives For more information, please contact: [phone] * Full Code (Latest Code Status on [...] patie nt/ legal decision maker Care Teams Rn Observation Relationship Specialty Start Date End Date [facility], [address] [address] PCP - General 08/24/22 Beverly Lopez PA-C [address] [address] Physician Wet Primer Powder Blender Urology 10/24/21
[2024-10-27 11:04] VITALS: BP 133/89; PULSE 94; RESP 18; TEMP 36.3; O2SAT 99; BMI 31.3
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
--- OUTSIDE RECORDS SUMMARY | 2024-10-27 11:55 | XMS_ITS | Clinical Summary ---
Author Organization [employer] [facility] Address [place], [place] [address] Care Team Providers Care Sterile Products Processor Name Role Phone Rosaline Bond MD Primary Care Provider [phone] Allergies Active Allergy Reactions Criticality Noted Date [...] Type Department Care Team Description 10/08/2024 Telephone [facility] [address] [place] [address] Benton Dobbs MD Questions 10/07/2024 Telephone [facility] [address] [place] [address] Benton Dobbs MD Questions 10/06/2024 Telephone [facility] [address] [place] [address] Benton Dobbs MD Arrhythmia 10/02/2024 Telephone [facility] [address] [place] [address] Benton Dobbs MD Health Maintenance Update 09/29/2024 2:30 PM CREATIVE PRODUCER Office Visit [facility] [address] [place] [phone] Benton Dobbs MD Consult (Ref: Dr. lara DX: Afib/09/01 Holter /pt states having no symptoms recently or today) 09/29/2024 Travel 09/03/2024 Refill [facility] [address] [place] [address] Filiberto Lara MD Refill Request 09/01/2024 Telephone [facility] [address] [place] [address] Filiberto Lara MD Results (Zio) 09/01/[address] [facility] [address] [place] [address] Nkechi Nguyen 1 scan: (1-Ord) Zio Report 08/14/2024 11:00 AM CREATIVE PRODUCER Office Visit [facility]Note 2] [address] [place] [address] Filiberto Lara MD from Last 3 Months [...] on file Legal Sex Male 6:46 AM CREATIVE PRODUCER Gender Identity Not on file Sexual Orientation Not on file Obstetrics History Last Filed Vital Signs Vital Sign Reading Time Taken Comments Blood Pressure 138/78 09/29/2024 2:30 PM CREATIVE PRODUCER Pulse 108 09/29/2024 2:30 PM CREATIVE PRODUCER Temperature - - Respiratory Rate - - Oxygen Saturation 100% 09/29/2024 2:30 PM CREATIVE PRODUCER Inhaled Oxygen Concentration - - Weight 97.5 kg (215 lb) 09/29/2024 2:30 PM CREATIVE PRODUCER Height 180.3 cm (5' 11) 09/29/2024 2:30 PM CREATIVE PRODUCER Body Mass Index 29.99 09/29/2024 2:30 PM CREATIVE PRODUCER Plan of Treatment Upcoming Encounters Date Type Department Care Team (Late st Contact Info) Description 02/02/2025 3:00 PM CDT Appointment [facility] [address] [place] [address] 02/02/2025 4:00 PM CDT Office Visit [facility] [address] [facility] [address] [place] [address] Benton Dobbs MD [address] [facility] [address] [place], [place] [phone] Health Maintenance Due Date Last Done Comments [...] EKG 12 LEAD Routine 09/29/2024 2:20 PM CREATIVE PRODUCER Atrial fibrillation, unspecified type (HC) EXTENDED HOLTER Routine 09/01/2024 Atypical atrial flutter (HC) from Last 3 Months Results * EKG 12 LEAD (09/29/2024 2:20 PM CREATIVE PRODUCER) Interpretation Atrial fibrillation with rapid ventricular response Poor R-wave progression ; consider anterior infarct, lead placement, or normal variant Abnormal ECG No previous ECGs available Ventricular Rate 108 BPM Atrial Rate BPM P-R Interval ms QRS Duration 84 ms QT 320 ms QTc 428 ms P [place] degrees R [place] 59 degrees T [place] 44 degrees 09/29/2024 2:20 PM CREATIVE PRODUCER 10/05/2024 5:32 PM CREATIVE PRODUCER Benton Dobbs MD EKG ORD Fin al Result * EXTENDED HOLTER (09/01/2024) Filiberto Lara MD CARDIAC SERVICES ORD Edite d Result - Final from Last 3 Months Insurance [facility] MEDICARE [place] ONLY MEDICARE PART B HB ONLY Care Teams Sterile Products Processor Relationship Specialty Start Date End Date Rosaline Bond MD [id number] [place] [id number] PCP - General 06/25/24
--- OUTSIDE RECORDS SUMMARY | 2024-10-27 11:55 | XMS_ITS | Referral Summary ---
Author Organization [place] Address [address] [place] [address] Care Team Providers Care Lumber Carrier Name Role Phone Beverly Lopez PA-C Unavailable [phone] [facility], [facility] Primary Care Provider Allergies No known [...] on file Legal Sex Male 3:11 AM CLINICAL CONSULTANT Gender Identity Not on file Sexual Orientation Not on file Last Filed Vital Signs Vital Sign Reading Time Taken Comments Blood Pressure 115/65 08/25/2022 8:14 AM CLINICAL CONSULTANT Pulse 80 08/25/2022 8:14 AM CLINICAL CONSULTANT Temperature 37.1 C (98.8 F) 08/25/2022 8:14 AM CLINICAL CONSULTANT Respiratory Rate 16 08/25/2022 8:14 AM CLINICAL CONSULTANT Oxygen Saturation 100% 08/25/2022 8:14 AM CLINICAL CONSULTANT Inhaled Oxygen Concentration - - Weight 89.4 kg (197 lb) 08/23/2022 8:41 AM CLINICAL CONSULTANT p t stated Height 180.3 cm (5' 11) 08/23/2022 8:41 AM CLINICAL CONSULTANT pt stated Body Mass Index 27.48 08/23/2022 8:41 AM CLINICAL CONSULTANT Plan of Treatment Not on file Medical Devices Implanted Type Area Woodworking Machine Operator Device Identifier Shelf Expiration Date Model / Serial / Lot Imp Nail Syn Can Fem Prox Tfna [id number] 125d 04.037.112s - [id number] Implanted:Qty: 1 on 08/23/2022 by Sonu Gomez MD at [facility] Metallic Hardware/Anc hor Right: Hip SYNTHES-STRATEC 01/22/2032 04.037.11 2S / / [id number] Imp Scr Syn Tfna Fenestrated Lag 95mm 04.038.195s - [id number] Implanted:Qty: 1 on 08/23/2022 by Sonu Gomez MD at [facility] Metallic Hardware/Anc hor Right: Hip SYNTHES-STRATEC 04/23/2032 04.038.19 5S / / [id number] Screw Bn 40mm 5mm Lck X25 Strl Im Nl 04.045.040s - [id number] Implanted:Qty: 1 on 08/23/2022 by Sonu Gomez MD at [facility] Metallic Hardware/Anc hor Right: Hip SYNTHES-STRATEC 12/23/2031 04.045.04 0S / / [id number] Insurance MEDICARE [facility] [employer] [facility] Address: [address] [address] [place] [address] Advance Directives For more information, please contact: [phone] * Full Code (Latest Code Status on [...] patie nt/ legal decision maker Care Teams Lumber Carrier Relationship Specialty Start Date End Date [facility], [address] [address] PCP - General 08/24/22 Beverly Lopez PA-C [address] [facility] [address] [place] [address] Physician Application Integrator Urology 10/24/21
--- OUTSIDE RECORDS SUMMARY | 2024-10-27 11:55 | XMS_ITS | Encounter Summary ---
Author Organization [employer] Address [address] [place] [address] Care Team Providers Care Funeral Home Makeup Artist Name Role Phone No Ref-Primary, Physician Primary Care Provider Beverly Lopez PA-C Unavailable Beverly Lopez PA-C Unavailable [facility] Primary Care Provider Encounter Details Date Type [...] on file Legal Sex Male 3:11 AM DUSTING AND BRUSHING MACHINE OPERATOR Gender Identity Not on file Sexual Orientation Not on file COVID-19 Exposure Response Date Recorded In the last month, have you been in contact with someone who was confirmed or suspected to have Coronavirus / COVID-19? Unable to assess 10/24/2021 8:35 AM DUSTING AND BRUSHING MACHINE OPERATOR documented as of this encounter Plan of Treatment Not on file documented as of this encounter Visit Diagnoses Not on filedocumented in this encounter Care Teams Funeral Home Makeup Artist Relationship Specialty Start Date End Date No Ref-Primary, Physician PCP - General 10/22/21 08/23/[address] [address] PCP - General 08/24/22 Beverly Lopez PA-C [address] [place] [address] Physician Microfilming Document Preparer Urology 10/24/21 Beverly Lopez PA-C [address] [place] [address] Assigned Surgical Provider 11/06/2104/27/23 documented as of this encounter
--- OUTSIDE RECORDS SUMMARY | 2024-10-27 11:55 | XMS_ITS | Clinical Summary ---
Author Organization [facility] Address [address] [place] [address] Care Team Providers Care It Systems Analyst Consultant Name Role Phone Beverly Lopez PA-C Unavailable [phone] [facility], [facility] Primary Care Provider Allergies No known active [...] on file Legal Sex Male 3:11 AM COOK MORNING Gender Identity Not on file Sexual Orientation Not on file Last Filed Vital Signs Vital Sign Reading Time Taken Comments Blood Pressure 115/65 08/25/2022 8:14 AM COOK MORNING Pulse 80 08/25/2022 8:14 AM COOK MORNING Temperature 37.1 C (98.8 F) 08/25/2022 8:14 AM COOK MORNING Respiratory Rate 16 08/25/2022 8:14 AM COOK MORNING Oxygen Saturation 100% 08/25/2022 8:14 AM COOK MORNING Inhaled Oxygen Concentration - - Weight 89.4 kg (197 lb) 08/23/2022 8:41 AM COOK MORNING p t stated Height 180.3 cm (5' 11) 08/23/2022 8:41 AM COOK MORNING pt stated Body Mass Index 27.48 08/23/2022 8:41 AM COOK MORNING Plan of Treatment Health Maintenance Due Date [...] (Cologuard) Discontinued Medical Devices Implanted Type Area Ob Nurse Device Identifier Shelf Expiration Date Model / Serial / Lot Imp Nail Syn Can Fem Prox Tfna [id number] 125d 04.037.112s - [id number] Implanted:Qty: 1 on 08/23/2022 by Sonu Gomez MD at [facility] Metallic Hardware/Anc hor Right: Hip SY[employer]ES-STRATEC 01/22/2032 04.037.11 2S / / [id number] Imp Scr Syn Tfna Fenestrated Lag 95mm 04.038.195s - [id number] Implanted:Qty: 1 on 08/23/2022 by Sonu Gomez MD at [facility] Metallic Hardware/Anc hor Right: Hip SYNTHES-STRATEC 04/23/2032 04.038.19 5S / / [id number] Screw Bn 40mm 5mm Lck X25 Strl Im Nl 04.045.040s - [id number] Implanted:Qty: 1 on 08/23/2022 by Sonu Gomez MD at [facility] Metallic Hardware/Anc hor Right: Hip SYN[employer]ES-STRATEC 12/23/2031 04.045.04 0S / / [id number] Insurance MEDICARE [facility] [employer] Advance Directives For more information, please contact: [phone] * Full Code (Latest Code Status on [...] patie nt/ legal decision maker Care Teams It Systems Analyst Consultant Relationship Specialty Start Date End Date [facility], [address] [address] PCP - General 08/24/22 Beverly Lopez PA-C [address] [place] [address] Physician Contract Loader Urology 10/24/21
== END 2024-10-27 12:10 | disposition home or self-care (01) ==
LOC: ED 11:53
PROVIDERS: Emergency Provider Emergency Medicine Emergency Medical Services; PCP Family Medicine
DX: K43.2 Incisional hernia without obstruction or gangrene (principal)
CPT/HCPCS: 99284

== ENCOUNTER 2024-12-01 09:27 | Outpatient (CLI) | payer MEDICARE, OTHER, SELFPAY ==
[2024-12-01 09:58] LABS: Hemoglobin* 14.9 gm/dL (13.5-17.5); Mean Corpuscular HGB Conc 33 gm/dL (32-36); Mean Corpuscular Hemoglobin 31 pg (26-34); Mean Corpuscular Volume 95 fL (80-100); Platelet Count* 212 K/uL (140-440); Red Blood Count 4.76 m/uL (4.30-5.90); Slide Review Reflex No; White Blood Count* 6.09 K/uL (4.50-11.00)
[2024-12-01 10:14] LABS: Chloride* 102 mmol/L (96-114); Potassium* 4.7 mmol/L (3.6-5.1); Sodium* 137 mmol/L (135-149)
[2024-12-01 10:17] LABS: Anion Gap 9 mEq/L (7-15); Blood Urea Nitrogen* 16 mg/dL (7-30); Calcium* 9.2 mg/dL (8.4-10.6); Carbon Dioxide* 26 mmol/L (20-32); Creatinine* 0.9 mg/dL (0.5-1.5); Estimated Glomerular Filt Rate 86 ml/min; Glucose* 121 mg/dL (60-115)
== END 2024-12-01 09:28 | disposition home or self-care (01) ==
LOC: LAB 09:32
PROVIDERS: PCP Family Medicine; Visit Provider Internal Medicine
DX: I48.91 Unspecified atrial fibrillation (principal); Z01.818 Encounter for other preprocedural examination
CPT/HCPCS: 36415; 80048; 85027

== ENCOUNTER 2025-04-13 10:14 | Outpatient (CLI) | payer MEDICARE, OTHER, SELFPAY ==
--- NOTE | 2025-04-13 11:00 | CRLHL7_ITS ---
For Patients: As a result of the Century Cures Act, medical imaging exams and procedure reports are released immediately into your electronic medical record. You may view this report before your referring provider. If you have questions, please contact your health care provider. INDICATION: Follow-up rectal cancer TECHNIQUE: CT chest, abdomen and pelvis acquired with 107 mL Isovue 370 IV contrast. COMPARISON: 10/16/2024, 10/11/2023 chest abdomen pelvis CTs FINDINGS: CHEST: Cardiovascular structures: Heart size is normal. Thoracic aorta and main pulmonary artery are normal in caliber. Coronary artery calcifications. Pacemaker. Mediastinum and carlota: No mass or adenopathy. Lungs and pleura: Lungs and pleural spaces are clear. No suspicious nodules, infiltrates, or effusions. Chest wall and axilla: Mild gynecomastia. Skin lesion in the medial right chest, unchanged. Bones: No suspicious bone lesions. Unremarkable for age. ABDOMEN AND PELVIS: Liver: Innumerable cysts throughout the liver. Gallbladder and bile ducts: Unremarkable. Pancreas: Unremarkable. Spleen: Unremarkable. Adrenal glands: Unremarkable. Kidneys: Unremarkable. GI tract: Low rectal anastomosis. No obstruction or inflammation. Vascular structures: Unremarkable. Lymph nodes: Unremarkable. Miscellaneous: Right lateral abdominal hernia containing multiple loops of wall as before. Small fat containing right inguinal hernia. Pelvic Organs: Unremarkable. Bones: Postop changes in the right proximal femur. IMPRESSION: No change. No evidence for metastatic disease. Please note that all CT scans at this facility use dose modulation, iterative reconstruction, and/or weight-based dosing when appropriate to reduce radiation dose to as low as reasonably achievable. Dictated by Chava Pulido MD @ 04/15/2025 4:10:23 PM (Electronically Signed)
== END 2025-04-13 10:15 | disposition home or self-care (01) ==
LOC: CT 10:16
PROVIDERS: PCP Family Medicine; Visit Provider Internal Medicine Hematology & Oncology
DX: C20 Malignant neoplasm of rectum (principal)
CPT/HCPCS: 71260; 74177; Q9967

== ENCOUNTER 2025-04-13 10:15 | Outpatient (RCR) | payer MEDICARE, OTHER, SELFPAY ==
[2024-10-16 09:48] LABS: Hematocrit 46.8 % (37.0-53.0); Hemoglobin* 15.2 gm/dL (13.5-17.5); Immature Granulocytes Abs Auto 0.01 K/uL (0.00-0.30); Immature Granulocytes Pct Auto 0.2 %; Mean Corpuscular HGB Conc 33 gm/dL (32-36); Mean Corpuscular Hemoglobin 31 pg (26-34); Mean Corpuscular Volume 95 fL (80-100); RDW Coefficient of Variation % 13.1 % (11.5-15.5); Red Blood Count 4.92 m/uL (4.30-5.90); White Blood Count* 5.85 K/uL (4.50-11.00)
[2024-10-16 09:52] LABS: Lymphocytes Absolute Auto 1.10 K/uL (0.90-2.90); Slide Review Reflex No
[2024-10-16 09:58] LABS: Albumin* 4.5 g/dL (3.3-5.0); Chloride* 104 mmol/L (96-114); Sodium* 139 mmol/L (135-149)
[2024-10-16 09:59] LABS: Potassium* 4.4 mmol/L (3.6-5.1)
[2024-10-16 10:01] LABS: Alanine Aminotransferase* 17 U/L (4-50); Alkaline Phosphatase* 67 U/L (40-150); Anion Gap 7 mEq/L (7-15); Aspartate Amino Transferase* 37 U/L (12-35); Bilirubin Total* 0.9 mg/dL (0.1-1.5); Blood Urea Nitrogen* 23 mg/dL (7-30); Carbon Dioxide* 28 mmol/L (20-32); Creatinine* 0.9 mg/dL (0.5-1.5); Estimated Glomerular Filt Rate 86 ml/min; Glucose* 106 mg/dL (60-115); Total Protein* 7.5 g/dL (6.0-8.3)
[2024-10-16 10:02] LABS: Calcium* 9.3 mg/dL (8.4-10.6)
[2024-10-17 18:14] LABS: Carcinoembryonic Antigen 1.9 ng/mL
[2025-04-13 11:24] LABS: Hematocrit 43.0 % (37.0-53.0); Hemoglobin* 14.3 gm/dL (13.5-17.5); Immature Granulocytes Abs Auto 0.02 K/uL (0.00-0.30); Immature Granulocytes Pct Auto 0.3 %; Mean Corpuscular HGB Conc 33 gm/dL (32-36); Mean Corpuscular Hemoglobin 31 pg (26-34); Mean Corpuscular Volume 95 fL (80-100); RDW Coefficient of Variation % 13.2 % (11.5-15.5); Red Blood Count 4.55 m/uL (4.30-5.90); White Blood Count* 6.25 K/uL (4.50-11.00)
[2025-04-13 11:33] LABS: Albumin* 4.2 g/dL (3.3-5.0); Chloride* 104 mmol/L (96-114); Potassium* 4.4 mmol/L (3.6-5.1); Sodium* 137 mmol/L (135-149)
[2025-04-13 11:34] LABS: Lymphocytes Absolute Auto 1.00 K/uL (0.90-2.90); Slide Review Reflex No
[2025-04-13 11:35] LABS: Blood Urea Nitrogen* 17 mg/dL (7-30); Creatinine* 1.0 mg/dL (0.5-1.5); Est. Creatinine Clearance* 56.05; Estimated Glomerular Filt Rate 76 ml/min
[2025-04-13 11:36] LABS: Alanine Aminotransferase* 16 U/L (4-50); Alkaline Phosphatase* 54 U/L (40-150); Anion Gap 6 mEq/L (7-15); Aspartate Amino Transferase* 36 U/L (12-35); Bilirubin Total* 1.0 mg/dL (0.1-1.5); Calcium* 9.2 mg/dL (8.4-10.6); Carbon Dioxide* 27 mmol/L (20-32); Glucose* 109 mg/dL (60-115); Total Protein* 6.9 g/dL (6.0-8.3)
[2025-04-14 14:32] LABS: Carcinoembryonic Antigen 1.6 ng/mL
== END 2025-04-14 23:59 | disposition home or self-care (01) ==
LOC: CCIC 10:15
PROVIDERS: Internal Medicine Hematology & Oncology; PCP Family Medicine; Referring Provider Family Medicine; Visit Provider Clinical Nurse Specialist
DX: C20 Malignant neoplasm of rectum (principal)
CPT/HCPCS: 36415; 80053; 82378; 85025; 99213; 99214; G0463

== ENCOUNTER 2025-05-19 08:02 | Day surgery (SDC) | payer MEDICARE, OTHER, SELFPAY ==
[2025-05-19] VITALS (14 sets, daily range): BP systolic 115–156; BP diastolic 67–83; PULSE 50–63; RESP 14–20; TEMP 36.1–36.6; O2SAT 97–100; BMI 32.4
[2025-05-19] MEDS: SODIUM CHLORIDE 0.9 % (FLUSH) 10 ML SYRINGE IVF (09:10)
[2025-05-19] MEDS: LACTATED RINGERS 1000 ML 1,000 ML 100 ML IV ×2 (09:10→11:19)
--- NOTE | 2025-05-19 09:18 | W.PM.H&PU_ITS ---
History & Physical Update History & Physical Update H&P Reviewed and patient assessed: No changes noted H&P Updates: Patient held [employer] since Sunday.
--- NOTE | 2025-05-19 09:22 | P.GSOP_ITS ---
Operative Note Date of procedure: 05/19/25 Pre-op diagnosis: 1. Right lower quadrant incisional hernia. Post-op diagnosis: 1. Incarcerated right lower quadrant incisional hernia containing small intestine. Type of Procedure: 1. Open right lower quadrant incisional hernia repair with mesh. Indications: 79-year-old male presented to clinic with a right lower quadrant abdominal bulge. Patient underwent robotic low anterior resection with diverting loop ileostomy in 2021. His loop ileostomy was subsequently taken down. Patient dev eloped bulge at the ileostomy site. This bulge was noted on abdominal CT in March of 2024. Patient was initially seen in our clinic 1 year ago but was not cleared for surgery. Patient then had a pacemaker placed and was subsequently cleared for surgery. Patient states that his abdominal bulge was getting bigger. He was having trouble closing his pants belt because of the bulge. He denied episodes of incarceration. On patient's abdominal CT from March of 2025 patient had no recurrence of his rectal cancer. His abdominal wall hernia has increased in size and had small intestine incarcerated in the hernia sac was no evidence of obstruction. On clinical exam patient had a moderately sized bulge in the right lower quadrant that was not reducible. There was no tenderness to palpation or attempting to reduce this hernia. Given patient's clinical history and his symptoms, open right lower quadrant abdominal wall hernia repair was recommended. The procedure was discussed in detail. The risks associated procedure including infection, bleeding, hernia recurrence, and injury to intra- abdominal organs were all discussed with the patient, and he agreed to proceed. Procedure Description: After discussing the risks and benefits of the procedure, the patient signed informed consent.? The operative site was marked and the patient was brought to the operating room and placed on the operating table in supine position.? Care was taken to pad the patient's pressure points.?? The patient was then intubated by anesthesia.?? The operative site was then prepped and draped in the usual sterile fashion.? A time-out was then performed. A transverse skin incision was made with a scalpel in the right lower quadrant over the palpable bulge. Subcutaneous fat was divided with cautery and hernia sac was identified. Hernia sac was then dissected circumferentially from the subcutaneous fat. Scar tissue was noted from patient's previous surgery. The hernia sac was large making the incarcerated part of the hernia sac at least orange size. The hernia sac was entered and small intestine was noted to be incarcerated through the hernia sac. The small intestine was then reduced into the abdomen and we continued with the dissection. When the hernia sac was mobilized off the anterior fascia, I then proceeded with developing subfascial s pace. The anterior fascia was grasped with Mary clamps and subfascial space was developed with cautery. Hemostasis was achieved with cautery. Right inferior epigastrics were identified in subcutaneous fat inferior to the hernia sac. Those were clamped, divided, and tied with Vicryl sutures. Subfascial space was circumferentially developed with cautery. The fascial defect was 7 cm in the largest (medial to lateral) dimension. The hernia sac was excised and not sent to pathology. The peritoneum and posterior fascia was closed with a running 0-0 Vicryl suture. 8 x [address] mesh was then placed into subfascial space ( the largest dimension of the mesh was placed transversely). The mesh was secured in place medially and laterally with interrupted 0-0 Nurolon sutures. The anterior fascia was then closed over the mesh with 2 running 0-0 PDS sutures. Local anesthetic was injected at the surgical site. A 15 round Sammy drain was placed just inferior and lateral to the surgical incision through a separate stab incision. The drain was placed in the subcutaneous space. The drain was secured in place to the skin with 3-0 nylon suture. Subcutaneous space was then irrigated with normal saline. Hemostasis was achieved with cautery. Subcutaneous fat was then reapproximated and anchored to the anterior fascia with multiple interrupted 2-0 Vicryl sutures. The skin dermis was then reapproximated with interrupted 3-0 Vicryl sutures. The skin was closed with a running 4-0 Monocryl stitch. Steri-Strips and sterile dressings were placed over the incision. All counts were correct at the end of the case. A drain sponge was placed under the drain. ? The patient was then woken and transported to the recovery area in stable condition. ? The patient tolerated the procedure well. Findings: Small bowel incarcerated in the large hernia sac. The fascial defect was half the size of the hernia sac. Implants: Ventrio ST 8 x 12 cm mesh. Anesthesia: GETA Surgeon: Rere Bonds MD Estimated blood loss (mL): 20 Condition: stable Disposition: PACU
[2025-05-19] MEDS: BUPIVACAINE 0.25% 30 ML INJECTION (09:53)
--- NOTE | 2025-05-19 10:05 | P.ANES_ITS ---
Anesthesia Charges Start Date/Time Anesthesia Start Date: 05/19/25 Anesthesia Start Time: 09:34 Stop Date/Time Anesthesia Stop Date: 05/19/25 Anesthesia Stop Time: 12:08 Summary Extremes of Age - Over 70 or under 1: MDA Coding CPT Codes CPT Codes: ANESTH REPAIR OF HERNIA - 30891 ([id number]) P3 - PATIENT W/SEVERE SYS DISEASE, QK - TSO 2-4 CNCRNT ANES PROC, QX - DIE MECHANIC SVC W/ MD MED DIRECTION Additional Codes: Summary - Extremes of Age - Over 70 or under 1: MDA ([id number])
--- NOTE | 2025-05-19 10:05 | W.ANESCHARGE ---
Anesthesia Charges Start Date/Time Anesthesia Start Date: 05/19/25 Anesthesia Start Time: 09:34 Stop Date/Time Anesthesia Stop Date: 05/19/25 Anesthesia Stop Time: 12:08 Summary Extremes of Age - Over 70 or under 1: MDA Coding CPT Codes CPT Codes: ANESTH REPAIR OF HERNIA - 57872 ([id number]) P3 - PATIENT W/SEVERE SYS DISEASE, QK - ORTHOPEDIC TECH 2-4 CNCRNT ANES PROC, QX - COVER MAKER SVC W/ MD MED DIRECTION Additional Codes: Summary - Extremes of Age - Over 70 or under 1: MDA ([id number])
--- NOTE | 2025-05-19 11:18 | P.ANES_ITS ---
Anesthesia Charges Start Date/Time Anesthesia Start Date: 05/19/25 Anesthesia Start Time: 09:34 Stop Date/Time Anesthesia Stop Date: 05/19/25 Anesthesia Stop Time: 12:08 Summary Extremes of Age - Over 70 or under 1: LADLE OPERATOR Coding CPT Codes CPT Codes: ANESTH REPAIR OF HERNIA - 00243 ([id number]) P3 - PATIENT W/SEVERE SYS DISEASE, QK - IMMUNOPATHOLOGIST 2-4 CNCRNT ANES PROC, QX - LADLE OPERATOR SVC W/ MD MED DIRECTION Additional Codes: Summary - Extremes of Age - Over 70 or under 1: LADLE OPERATOR ([id number])
--- NOTE | 2025-05-19 11:18 | W.ANESCHARGE ---
Anesthesia Charges Start Date/Time Anesthesia Start Date: 05/19/25 Anesthesia Start Time: 09:34 Stop Date/Time Anesthesia Stop Date: 05/19/25 Anesthesia Stop Time: 12:08 Summary Extremes of Age - Over 70 or under 1: PLANT OPERATIONS COORDINATOR Coding CPT Codes CPT Codes: ANESTH REPAIR OF HERNIA - 64538 ([id number]) P3 - PATIENT W/SEVERE SYS DISEASE, QK - POLICE PILOT 2-4 CNCRNT ANES PROC, QX - PLANT OPERATIONS COORDINATOR SVC W/ MD MED DIRECTION Additional Codes: Summary - Extremes of Age - Over 70 or under 1: PLANT OPERATIONS COORDINATOR ([id number])
--- NOTE | 2025-05-19 12:37 | SUR.PHASEI ---
Verbal Order from Dr. Anthony for 12k EKG to be completed in PACU due to patient having aflutter in pacu
--- NOTE | 2025-05-19 12:44 | SUR.PHASEI ---
12 lead EKG Reviewed by Dr. Anthony. No interventions needed. Patient denies any symptoms of shortness of breath or chest pain.
--- NOTE | 2025-05-19 13:10 | SUR.PHASEII ---
abd dressing c/d/i, binder in place. Son in law in room. pt tolerating popsicle and water.
[2025-05-19] MEDS: ACETAMINOPHEN 325 MG TABLET 650 MG PO (14:06)
== END 2025-05-19 14:30 | disposition home or self-care (01) ==
PROVIDERS: PCP Family Medicine; Visit Provider Surgery
PROC: (CPT 49594; principal; 2025-05-19 09:30)
DX: K43.0 Incisional hernia with obstruction, without gangrene (principal); E11.9 Type 2 diabetes mellitus without complications; I10 Essential (primary) hypertension; I48.92 Unspecified atrial flutter; Z95.0 Presence of cardiac pacemaker; Z79.01 Long term (current) use of anticoagulants
CPT/HCPCS: 49594; 00832; 82962; 93005; 99100; A4467; A9270; C1781; J0330; J0665; J0690; J1100; J2405; J2704; J2710; J3010; J3475; J3490; J7120

== ENCOUNTER 2025-07-03 09:32 | Outpatient (CLI) | payer MEDICARE, OTHER, SELFPAY ==
--- NOTE | 2025-07-03 11:01 | P.ANES_ITS ---
Anesthesia Charges Start Date/Time Anesthesia Start Date: 07/03/25 Anesthesia Start Time: 10:36 Stop Date/Time Anesthesia Stop Date: 07/03/25 Anesthesia Stop Time: 10:58 Summary Extremes of Age - Over 70 or under 1: ASBESTOS CLOTH INSPECTOR Coding CPT Codes CPT Codes: ANES LWR INTST NDSC NOS - 21606 ([id number]) P3 - PATIENT W/SEVERE SYS DISEASE, QK - FRUIT PACKER FACE AND FILL 2-4 CNCRNT ANES PROC, QX - ASBESTOS CLOTH INSPECTOR SVC W/ MD MED DIRECTION Additional Codes: Summary - Extremes of Age - Over 70 or under 1: ASBESTOS CLOTH INSPECTOR ([id number])
--- NOTE | 2025-07-03 11:01 | W.ANESCHARGE ---
Anesthesia Charges Start Date/Time Anesthesia Start Date: 07/03/25 Anesthesia Start Time: 10:36 Stop Date/Time Anesthesia Stop Date: 07/03/25 Anesthesia Stop Time: 10:58 Summary Extremes of Age - Over 70 or under 1: PARKING ENFORCEMENT SPECIALIST Coding CPT Codes CPT Codes: ANES LWR INTST NDSC NOS - 11288 ([id number]) P3 - PATIENT W/SEVERE SYS DISEASE, QK - RETAIL ATTENDANT 2-4 CNCRNT ANES PROC, QX - PARKING ENFORCEMENT SPECIALIST SVC W/ MD MED DIRECTION Additional Codes: Summary - Extremes of Age - Over 70 or under 1: PARKING ENFORCEMENT SPECIALIST ([id number])
--- NOTE | 2025-07-03 11:20 | P.ANES_ITS ---
Anesthesia Charges Start Date/Time Anesthesia Start Date: 07/03/25 Anesthesia Start Time: 10:36 Stop Date/Time Anesthesia Stop Date: 07/03/25 Anesthesia Stop Time: 10:58 Summary Extremes of Age - Over 70 or under 1: MDA Coding CPT Codes CPT Codes: ANES LWR INTST NDSC NOS - 66156 ([id number]) QK - MAGNETIC TAPE COMPOSER OPERATOR 2-4 CNCRNT ANES PROC, QX - PROCESSING ENGINEER SVC W/ MD MED DIRECTION, P3 - PATIENT W/SEVERE SYS DISEASE Additional Codes: Summary - Extremes of Age - Over 70 or under 1: MDA ([id number])
== END 2025-07-03 09:33 | disposition home or self-care (01) ==
LOC: OP CLINIC 09:34
PROVIDERS: PCP Family Medicine; Visit Provider Internal Medicine Gastroenterology
DX: Z12.11 Encounter for screening for malignant neoplasm of colon (principal); Z85.038 Personal history of other malignant neoplasm of large intestine; Z98.0 Intestinal bypass and anastomosis status; D12.2 Benign neoplasm of ascending colon; D12.4 Benign neoplasm of descending colon
CPT/HCPCS: 00811; 45385; 88305; 99100; J2704